=== PATIENT | female | born 1950 | race Caucasian/White ===

== ENCOUNTER → 2016-06-24 | Outpatient (CLI) | payer OTHER ==
[~2016-06-24] MED LIST: ALPR-411 PO; ASPCH81X PO; CALC-393 PO; CHOL1000 PO; CMD5 PO; CYAN10005 PO; DIAZ2TAB PO; ESCI1TAB9 PO; FERR1TAB13 PO; FLEC100T21 PO; GLIP1TAB91 PO; LXT PO; METO-217 PO; METO1TAB66 PO; PANT40TA PO; SENNTAB23 PO; WARF2.5T8 PO; ZCRT/40 PO
[2016-06-25 06:00] LABS: ESTIMATED AVERAGE GLUCOSE 126 mg/dl; HA1C FLAG Normal (Normal)
--- NOTE | 2016-06-30 09:04 | CODING QUERY MEDICAL NECESSITY ---
SUPPORTING DIAGNOSIS NEEDED Dr. Rizvi, A supporting diagnosis is required for the test/procedure performed on this patient in order for us to be reimbursed by the patient's insurance. Please provide a supporting diagnosis for the following test/procedure listed below next to the test name along with your signature. *If there is no additional diagnosis for this patient that would support the following test/procedure please document that below next to the test/procedure. Test(s)/Procedure(s) that require a supporting diagnosis: * GLYCATED HEMOGLOBIN DIAGNOSIS: DATE OF SERVICE: 06/24/16 Provider Signature: Date: Thank you Marko Brooks [facility] Information Management Once completed, please kindly fax back to [phone] For questions please call [phone]
== END | disposition home or self-care (01) ==
LOC: C.LAB1850 14:01
PROVIDERS: ATTEND Internal Medicine
DX: Z11.59 Encounter for screening for other viral diseases (principal); E78.5 Hyperlipidemia, unspecified; E11.9 Type 2 diabetes mellitus without complications

== ENCOUNTER → 2017-02-05 | Outpatient (CLI) | payer OTHER ==
[2017-02-05 12:08] LABS: BASO % 0.7 %; BASO ABS # 0.06 K/uL (0-0.2); COMPLETE YES; HEMATOCRIT 44.4 % (37-47); IG% 0.3 %; LYMPH % 20.8 %; LYMPH ABS # 1.87 K/uL (1.2-3.4); MEAN CELL VOLUME 94.7 fL (80-100); MEAN CORPUSCULAR HEMOGLOBIN 32.4 pg (25-34); MEAN CORPUSCULAR HGB CONC 34.2 g/dl (32-36); MEAN PLATELET VOLUME 13.2 fL (7.4-10.4); MONO % 12.3 %; NEUT % 63.9 %; PLATELET COUNT 220 K/uL (130-400); RED BLOOD COUNT 4.69 M/uL (4.2-5.4)
[2017-02-05 12:31] LABS: URINE APPEARANCE CLEAR (CLEAR); URINE BILIRUBIN NEG (NEG); URINE COLOR YELLOW; URINE EPITHELIAL CELL AUTO 20-30 /lpf (0-5); URINE NITRITE NEG (NEG); UROBILINOGEN NEG (NEG)
[2017-02-05 12:34] LABS: MANUAL MICROSCOPIC REQUIRED? NO; REVIEW REQ? NO
[2017-02-05 12:38] LABS: ALT/SGPT 24 U/L (12-78); AST/SGOT 15 U/L (15-37); BLOOD UREA NITROGEN 28 mg/dl (7-18); BUN/CREATININE RATIO 21.3 (10-20); CALCIUM 10.7 mg/dl (8.5-10.1); CARBON DIOXIDE 25 mmol/L (21-32); CHLORIDE 102 mmol/L (98-107); GLUCOSE 143 mg/dl (70-99); SODIUM 134 mmol/L (136-145)
[2017-02-05 12:41] LABS: ESTIMATED AVERAGE GLUCOSE 143 mg/dl; HA1C FLAG Normal (Normal)
[2017-02-05 12:49] LABS: CHOLESTEROL 205 mg/dl (0-200); HDL CHOLESTEROL 68 mg/dl; LDL CHOLESTEROL CALCULATED 106 mg/dl; TRIGLYCERIDES 156 mg/dl (0-150); VERY LOW DENSITY LIPOPROT CALC 31 mg/dl
[2017-02-05 13:19] LABS: RATIO 6.5 mcg/mg (0-30.0)
--- NOTE | 2017-02-17 11:49 | CODING QUERY MEDICAL NECESSITY ---
SUPPORTING DIAGNOSIS NEEDED Dr. Rizvi, A supporting diagnosis is required for the test/procedure performed on this patient in order for us to be reimbursed by the patient's insurance. Please provide a supporting diagnosis for the following test/procedure listed below next to the test name along with your signature. *If there is no additional diagnosis for this patient that would support the following test/procedure please document that below next to the test/procedure. Test(s)/Procedure(s) that require a supporting diagnosis: * [id number] GLYCATED HEMOGLOBIN DIAGNOSIS: DATE OF SERVICE: 02/05/17 Provider Signature: Date: Thank you Marko Brooks [facility] Information Management Once completed, please kindly fax back to [phone] For questions please call [phone]
== END | disposition home or self-care (01) ==
LOC: C.LAB1850 10:29
PROVIDERS: ATTEND Internal Medicine
DX: E78.5 Hyperlipidemia, unspecified (principal); E11.9 Type 2 diabetes mellitus without complications

== ENCOUNTER → 2017-05-26 | Outpatient (CLI) | payer OTHER ==
[~2017-05-26] MED LIST changes: +METO-452 PO; -METO1TAB66 PO
[2017-05-26 16:57] LABS: CALCIUM 10.2 mg/dl (8.5-10.1)
[2017-05-27 07:40] LABS: ESTIMATED AVERAGE GLUCOSE 123 mg/dl; HA1C FLAG Normal (Normal)
== END | disposition home or self-care (01) ==
LOC: C.LAB1850 14:12
PROVIDERS: ATTEND Internal Medicine
DX: E78.5 Hyperlipidemia, unspecified (principal); E83.52 Hypercalcemia

== ENCOUNTER → 2017-06-25 | Outpatient (CLI) | payer OTHER ==
--- NOTE | 2017-06-25 21:40 | DIAGNOSTIC IMAGING REPORT ---
NUCLEAR PARATHYROID SCAN CLINICAL HISTORY: Hypercalcemia. Hyperparathyroidism. COMPARISON STUDY: The thyroid scan dated 01/23/2014. TECHNIQUE: 21.2 mCi of technetium-99m Cardiolite was administered intravenously. Fifteen minute planar, 3-hour planar, and SPECT images of the neck and thorax were performed. FINDINGS: There is normal radiotracer accumulation seen throughout both thyroid lobes on the 15 minute images. There is expected salivary gland and cardiac activity. Delayed planar images show diffuse homogeneous washout of tracer from the thyroid gland. There are no abnormal foci of increased radiotracer uptake to suggest parathyroid adenoma. SPECT imaging shows no areas of suspicious focal uptake within the thyroid bed, lower neck, or superior mediastinum. IMPRESSION: There is no scintigraphic evidence of parathyroid adenoma and there has been no significant change from the 2014 examination. Electronically signed by: Jessee Mann M.D. 06/25/2017 9:38 PM Dictated Date/Time: 06/25/2017 9:33 PM
== END | disposition home or self-care (01) ==
LOC: C.NUCL 16:33
PROVIDERS: ATTEND Internal Medicine
DX: E78.5 Hyperlipidemia, unspecified (principal)

== ENCOUNTER → 2017-09-22 | Outpatient (CLI) | payer OTHER | END | disposition home or self-care (01) | LOC: C.PAPS 18:21 | PROVIDERS: ATTEND Obstetrics & Gynecology | DX: Z12.4 Encounter for screening for malignant neoplasm of cervix (principal) ==

== ENCOUNTER → 2018-01-18 | Outpatient (CLI) | payer OTHER ==
--- NOTE | 2018-01-18 15:00 | DIAGNOSTIC IMAGING REPORT ---
L HUMERUS MIN 2 VIEWS ROUTINE CLINICAL HISTORY: W19.XXXA [id number] Arm [id number] trauma. Pain. COMPARISON: None. DISCUSSION: The bones and joint spaces appear intact. There is no evidence of fracture, dislocation or bony disease. There is no evidence for soft tissue swelling. IMPRESSION: Negative study. The above report was generated using voice recognition software. It may contain grammatical, syntax or spelling errors. Electronically signed by: Cm Welch M.D. 01/18/2018 2:58 PM Dictated Date/Time: 01/18/2018 2:58 PM
== END | disposition home or self-care (01) ==
LOC: C.RAD1850 14:33
PROVIDERS: ATTEND Physician Assistant
DX: M79.603 Pain in arm, unspecified (principal); W19.XXXA Unspecified fall, initial encounter

== ENCOUNTER 2019-03-19 16:12 | Inpatient (IN) ==
--- NOTE | 2019-03-19 16:54 | XRay Report ---
XR chest 1V portable HISTORY: 68 years-old Female Dyspnea acute shortness of breath COMPARISON: Chest radiographs 09/11/2015 TECHNIQUE: Portable AP view of the chest FINDINGS: Cardiac silhouette is enlarged. Calcified plaque of the thoracic cortical arch. Pulmonary vascular co ngestion. Unchanged positioning of the left subclavian pacer. No pneumothorax. Suspected trace pleura l effusions are noted with mid and lower lung zone predominant mixed interstitial and alveolar opacit ies, left greater than right. Degenerative changes of the shoulders and spine. IMPRESSION: 1. Cardiomegaly with suggestion of mild pulmonary edema. 2. Asymmetric left greater than right basilar and left midlung opacities suggest asymmetric pulmonary edema versus pneumonitis. Correlate clinically. 3. Probable trace pleural effusions. The above report was generated using voice recognition software. It may contain grammatical, syntax o r spelling errors. Electronically signed by: Neil Waddell M.D. 03/19/2019 4:53 PM
[2019-03-19 16:55] LABS: Base Excess ABG -0.4 mEq/L (-9-1.8); HCO3 ABG 21 mmol/L (19-24); Oxygen Saturation ABG 92.4 % (90-95); PCO2 ABG 28 mmHg (35-46); PO2 ABG 60 mm/Hg (80-95)
[2019-03-19 17:00] LABS: Basophils # (auto) 0.04 K/uL (0-0.2); Basophils % (auto) 0.3 %; Eosinophils # (auto) 0.02 K/uL (0-0.5); Eosinophils % (auto) 0.1 %; Hematocrit (blood only) 44.2 % (37-47); Hemoglobin 14.8 g/dL (12.0-16.0); Immature Granulocytes # (auto) 0.07 K/uL (0.00-0.02); Immature Granulocytes % (auto) 0.5 %; Lymphocytes # (auto) 1.32 K/uL (1.2-3.4); Lymphocytes % (auto) 8.5 %; Mean Corpuscular Hemoglobin 31.9 pg (25-34); Mean Corpuscular Hgb Conc 33.5 g/dL (32-36); Mean Corpuscular Volume 95.3 fL (80-100); Mean Platelet Volume 12.5 fL (7.4-10.4); Monocytes # (auto) 1.39 K/uL (0.11-0.59); Monocytes % (auto) 8.9 %; Neutrophils # (auto) 12.71 K/uL (1.4-6.5); Neutrophils % (auto) 81.7 %; Nucleated RBC # (auto) 0.06 K/uL (0-0); Nucleated RBC % (auto) 0.4 %; Platelet Count 205 K/uL (130-400); RDW Coefficient of Variation 14.3 % (11.5-14.5); RDW Standard Deviation 49.2 fL (36.4-46.3); Red Blood Count 4.64 M/uL (4.2-5.4); White Blood Count 15.55 K/uL (4.8-10.8)
[2019-03-19 17:03] LABS: Allen Test Pos (Pos)
[2019-03-19] MEDS ORDERED: LEVOFLOXACIN/D5W 750 MG/150 ML BAG IV STA (17:17)
[2019-03-19 17:18] LABS: Prothrombin Time 48.4 Seconds (9.0-12.0)
[2019-03-19 17:19] LABS: Influenza A virus by PCR Neg for Influ A (Neg); Influenza B virus by PCR Neg for Influ B (Neg)
[2019-03-19 17:22] LABS: Alanine Aminotransferase 20 U/L (12-78); Albumin Level 3.4 gm/dl (3.4-5.0); Aspartate Aminotransferase 17 U/L (15-37); BUN Creatinine Ratio 15.3 (10-20); Blood Urea Nitrogen 27 mg/dl (7-18); Calcium 10.6 mg/dl (8.5-10.1); Carbon Dioxide 24 mmol/L (21-32); Chloride 103 mmol/L (98-107); Est GFR (African American) 34.1; Est GFR (Non-African American) 29.4; Glucose 216 mg/dl (70-99); Potassium 4.5 mmol/L (3.5-5.1); Sodium 137 mmol/L (136-145)
[2019-03-19 17:25] LABS: INR 5.3 (0.9-1.1); Partial Thromboplastin Time 55.5 Seconds (21.0-31.0)
[2019-03-19 17:27] LABS: Albumin Globulin Ratio 0.7 (0.9-2); Alkaline Phosphatase 102 U/L (45-117); Bilirubin,Total 0.9 mg/dl (0.2-1); Globulin 4.7 gm/dl (2.5-4.0); NT Pro B Type Natriuretic Pept 9374 pg/ml (0-900); Total Protein 8.1 gm/dl (6.4-8.2); Troponin I < 0.015 ng/ml (0-0.045)
[2019-03-19] MEDS ORDERED: PHYTONADIONE 2.5 MG in SODIUM CHLORIDE 0.9% 50 ML IV ONE (17:42)
--- NOTE | 2019-03-19 18:57 | Emergency Department Note ---
Entered by Carmencita Ontiveros acting as a scribe for History of Present Illness General Chief complaint: Shortness of Breath/Dyspnea Stated complaint: WEAKNESS Source: patient History of Present Illness Onset (ago): hour(s) (last night ) Location: chest Pain Consistency: + other (worsening ) Quality: + other (weakness; shortness of breath ) Associated symptoms: + cough (mucous and blood), + diaphoresis, + fever/chills and + other (negative congestion; negative leg swelling); no nausea/vomiting The patient is a 68 year old female with a PMHx of COPD, Afib, and Type 2 Diabetes who presents to the Emergency Room with complaints of worsening weakness and shortness of breath beginning last night. The patient states that she felt weak all day yesterday, but states that this became worse last night as she developed fever, chills, and shortness of breath. She states that she went to bed and woke up this morning covered in sweat. The patient reports that for the past two weeks she has been coughing up a small amount blood with mucous every time she coughs. She denies congestion, leg swelling, nausea, and vomiting. The patient states that she is on Warfarin. She reports a history of COPD and Afib, and states that she is not on oxygen regularly. Home Medications Home Medications Medication Instructions Recorded Confirmed Type escitalopram 10 mg tablet 10 mg PO QAM #90 tab 01/24/19 03/19/19 History ferrous sulfate 325 mg (65 mg 325 mg PO BIDM #180 tab 01/24/19 03/19/19 History iron) tablet flecainide 100 mg tablet 100 mg PO BID #180 tab 01/24/19 03/19/19 History glipizide ER 5 mg tablet, extended 5 mg PO QAM #90 tab 01/24/19 03/19/19 History release 24 hr pantoprazole 40 mg tablet,delayed 40 mg PO QAM #90 tab 01/24/19 03/19/19 History release simvastatin 40 mg tablet 40 mg PO HS #90 tab 01/24/19 03/19/19 History tiotropium bromide 2.5 2 puffs INHALATION QAM #3 gm 01/24/19 03/19/19 History mcg/actuation mist for inhalation tramadol 50 mg tablet 50 mg PO BID PRN #60 tab 01/24/19 03/19/19 History triamterene 37.5 1 tab PO Q OTHER DAY #45 tab 01/24/19 03/19/19 History mg-hydrochlorothiazide 25 mg tablet warfarin 5 mg tablet 5 mg PO HS #100 tab 01/24/19 03/19/19 History alprazolam 0.25 mg tablet 0.25 mg PO TID PRN #90 tab 02/14/19 03/19/19 Rx diazepam 2 mg tablet 2 mg PO HS PRN #30 tab 02/25/19 03/19/19 History ascorbic acid (vitamin C) [Vitamin 1 g PO BID 03/19/19 03/19/19 History C] aspirin 81 mg PO QAM 03/19/19 03/19/19 History calcium carbonate-vitamin D3 1 tab PO QAM 03/19/19 03/19/19 History [Calcium 500 With D] cyanocobalamin (vitamin B-12) 1,000 mcg PO MONTHLY 03/19/19 03/19/19 History [Vitamin B-12] Allergies Allergy/AdvReac Type Severity Reaction Status Date / Time ibuprofen Allergy Intermediate SHAKINESS Verified 03/19/19 17:44 iodine Allergy Intermediate RASH Verified 03/19/19 17:44 latex Allergy Unknown unknown Verified 03/19/19 17:44 metformin AdvReac Intermediate DIZZINESS Verified 03/19/19 17:44 amoxicillin AdvReac Unknown IRRITABILIT Verified 03/19/19 17:44 Y Past Med/Surg History Medical History Anemia (Acute) Atrial fibrillation (Acute) COPD (chronic obstructive pulmonary disease) (Acute) Coronary artery arteriosclerosis (Acute) Depression, controlled (Acute) Diabetes (Acute) Hypercholesterolemia (Acute) Hypertension (Acute) Pacemaker (Acute) Surgical History Gastric bypass status for obesity (Acute) Hx of tonsillectomy (Acute) S/P appy (Acute) Family History Other No pertinent family history in first degree relatives Social History Intel Analyst Required: No Beliefs That Will Affect Care: None Current Living Situation: Family Feels Safe at Home: Yes Smoking Status: Former smoker Hx Alcohol Use: Yes Alcohol type: wine Hx Substance Use: No Review of Systems See HPI for pertinent positives & negatives. and A total of 10 systems reviewed and were otherwise negative Physical Exam Vital Signs Vital Signs - 24 hr 03/19/19 16:17 03/19/19 16:20 03/19/19 16:58 Temperature 36.0 C L Temperature Source Oral Sepsis Recent Fever Within 48 Hours No Sepsis New/Unexplained Change in Mental Status No Sepsis Action Taken by Nursing No Action Required Pulse Rate 97 H 100 H 92 H Pulse Rate [Right Finger] Pulse Rate from SpO2 Sensor 97 H 92 H Pulse Rhythm [Right Finger] Respiratory Rate 16 28 H 19 Respiratory Depth Blood Pressure 123/70 123/70 117/77 Blood Pressure [Right Arm] Blood Pressure Mean 87 87 90 Blood Pressure Mean [Right Arm] Blood Pressure Position Sitting Blood Pressure Position [Right Arm] Pulse Oximetry 78 L 91 Oxygen Delivery Method Room Air Nasal Cannula Oxygen Flow Rate 4 03/19/19 16:59 03/19/19 17:00 03/19/19 17:01 Temperature 36.8 C Temperature Source Oral Sepsis Recent Fever Within 48 Hours Sepsis New/Unexplained Change in Mental Status Sepsis Action Taken by Nursing Pulse Rate 91 H Pulse Rate [Right Finger] 91 H Pulse Rate from SpO2 Sensor 92 H Pulse Rhythm [Right Finger] Respiratory Rate 20 19 Respiratory Depth Normal Blood Pressure Blood Pressure [Right Arm] 117/77 Blood Pressure Mean Blood Pressure Mean [Right Arm] 90 Blood Pressure Position Blood Pressure Position [Right Arm] Lying Pulse Oximetry 90 78 L Oxygen Delivery Method Nasal Cannula Oxygen Flow Rate 5 03/19/19 17:10 03/19/19 17:20 03/19/19 17:30 Temperature Temperature Source Sepsis Recent Fever Within 48 Hours Sepsis New/Unexplained Change in Mental Status Sepsis Action Taken by Nursing Pulse Rate 91 H 90 94 H Pulse Rate [Right Finger] Pulse Rate from SpO2 Sensor 89 91 H 94 H Pulse Rhythm [Right Finger] Respiratory Rate 18 20 16 Respiratory Depth Blood Pressure Blood Pressure [Right Arm] Blood Pressure Mean Blood Pressure Mean [Right Arm] Blood Pressure Position Blood Pressure Position [Right Arm] Pulse Oximetry 92 95 89 L Oxygen Delivery Method Oxygen Flow Rate 03/19/19 17:40 03/19/19 17:50 03/19/19 18:00 Temperature Temperature Source Sepsis Recent Fever Within 48 Hours Sepsis New/Unexplained Change in Mental Status Sepsis Action Taken by Nursing Pulse Rate 91 H 91 H 90 Pulse Rate [Right Finger] Pulse Rate from SpO2 Sensor 90 91 H 90 Pulse Rhythm [Right Finger] Respiratory Rate 19 22 16 Respiratory Depth Blood Pressure Blood Pressure [Right Arm] Blood Pressure Mean Blood Pressure Mean [Right Arm] Blood Pressure Position Blood Pressure Position [Right Arm] Pulse Oximetry 95 96 95 Oxygen Delivery Method Oxygen Flow Rate 03/19/19 18:07 03/19/19 18:10 03/19/19 18:11 Temperature Temperature Source Sepsis Recent Fever Within 48 Hours Sepsis New/Unexplained Change in Mental Status Sepsis Action Taken by Nursing Pulse Rate 92 H 91 H 91 H Pulse Rate [Right Finger] 91 H Pulse Rate from SpO2 Sensor 93 H 91 H 91 H Pulse Rhythm [Right Finger] Regular Respiratory Rate 22 11 L 18 Respiratory Depth Blood Pressure 106/69 119/79 Blood Pressure [Right Arm] 119/79 Blood Pressure Mean 81 92 Blood Pressure Mean [Right Arm] 92 Blood Pressure Position Blood Pressure Position [Right Arm] Pulse Oximetry 93 95 94 Oxygen Delivery Method Oxygen Flow Rate 03/19/19 18:15 03/19/19 18:20 03/19/19 18:30 Temperature Temperature Source Sepsis Recent Fever Within 48 Hours Sepsis New/Unexplained Change in Mental Status Sepsis Action Taken by Nursing Pulse Rate 91 H 88 91 H Pulse Rate [Right Finger] Pulse Rate from SpO2 Sensor 90 89 87 Pulse Rhythm [Right Finger] Respiratory Rate 17 18 17 Respiratory Depth Blood Pressure 114/73 Blood Pressure [Right Arm] Blood Pressure Mean 86 Blood Pressure Mean [Right Arm] Blood Pressure Position Blood Pressure Position [Right Arm] Pulse Oximetry 95 95 94 Oxygen Delivery Method Oxygen Flow Rate Constitutional: Vital signs reviewed. Eyes: Pupils are equal round reactive to light. Conjunctiva are noninjected. ENT: Pharynx is clear without erythema or exudate. Mucous membranes are moist. Neck supple without meningeal signs. Respiratory: Bibasilar crackles, greater on the right side. Otherwise the breath sounds are equal and clear. No wheezing. Cardiovascular: Regular rate and rhythm. No rubs or gallops. GI: Soft, nondistended and nontender. Bowel sounds are present. Musculoskeletal: No peripheral edema. No lower extremity tenderness. Integumentary: Cyanosis to the nail beds and lips. Neurological: The patient is awake and alert. No focal deficits. Psychiatric: Normal affect. Course 1619: Past medical records reviewed. The patient was evaluated in room B12B. A complete history and physical exam was performed. 1710: Upon reevaluation, the patient's pulse ox is anywhere between 89 and 93% on 4L with a poor waveform. 1722: Upon reevaluation, the patient's lungs are clear except for the bibasilar rales. No wheezing. The patient states that she feels better. The patient's pulse ox is 97% on 5L with a good waveform. Her cyanosis has improved. I discussed the chest x-ray with the patient and ordered Levaquin IV. We are waiting on her INR. 1743: [facility] recommends giving the patient 2.5 Vitamin K IV. 1745: I notified the patient about the treatment plan. She states that she is feeling better. 1752: I discussed the [facility] who [facility] the patient for further evaluation. Consultations Consultation #1: I [facility] the [facility] recommends giving the patient 2.5 Vitamin K IV. Time: 17:43 Consultation #2: I discussed the [facility] who [facility] the patient for further evaluation. Time: 17:52 Administered Medications Discontinued Medications Levofloxacin/Dextrose (Levaquin/D5w) 750 mg in 150 mls @ 100 mls/hr IV NOW STA Stop: 03/19/19 18:46 Last Infusion: 03/19/19 18:36 Dose: 100 mls/hr Documented by: [id number] Infusion: 03/19/19 18:07 Dose: 0 mls/hr Documented by: [id number] Admin: 03/19/19 17:22 Dose: 100 mls/hr Documented by: [id number] Phytonadione 2.5 mg/ Sodium (Chloride) 50.25 mls @ 100.5 mls/hr IV ONE ONE Stop: 03/19/19 18:11 Last Infusion: 03/19/19 18:35 Dose: 0 mls/hr Documented by: [id number] Admin: 03/19/19 18:07 Dose: 100.5 mls/hr Documented by: [id number] Medical Decision Making Differential Diagnosis Differential diagnoses include bronchitis, pneumonia, lung cancer, PE, COPD exacerbation, CHF, and others were considered. Medical Records Attestation: I reviewed the patient's medical records. I did perform a limited focused review of portions of the patient's old chart on the electronic medical record. The patient has had no recent pertinent visits to this hospital. Home Medications Current Medication List: was personally reviewed by me Laboratory Data Attestation: I reviewed the patient's lab results. Result diagrams: 03/19/19 16:40 03/19/19 16:40 Lab Results 03/19/19 03/19/19 03/19/19 Range/Units 16:35 16:40 16:40 WBC (4.8-10.8) K/uL RBC (4.2-5.4) M/uL Hgb (12.0-16.0) g/dL Hct (37-47) % MCV (80-100) fL MCH (25-34) pg MCHC (32-36) g/dL RDW Std Deviation (36.4-46.3) fL RDW Coeff of Severino (11.5-14.5) % Plt Count (130-400) K/uL MPV (7.4-10.4) fL Immature Gran % (Auto) % Neut % (Auto) % Lymph % (Auto) % [place] % (Auto) % Eos % (Auto) % Baso % (Auto) % Immature Gran # (Auto) (0.00-0.02) K/uL Neut # (Auto) (1.4-6.5) K/uL Lymph # (Auto) (1.2-3.4) K/uL [place] # (Auto) (0.11-0.59) K/uL Eos # (Auto) (0-0.5) K/uL Baso # (Auto) (0-0.2) K/uL Absolute Nucleated RBC (0-0) K/uL Nucleated RBC % (auto) % PT 48.4 H (9.0-12.0) Seconds INR 5.3 H (0.9-1.1) APTT 55.5 H* (21.0-31.0) Seconds PTT Ratio 2.0 ABG pH (7.35-7.45) ABG pCO2 (35-46) mmHg ABG pO2 (80-95) mm/Hg ABG HCO3 (19-24) mmol/L ABG O2 Saturation (90-95) % ABG Base Excess (-9-1.8) mEq/L Huy Test (Pos) Barometric Pressure mm/Hg Oxygen Given Sodium 137 (136-145) mmol/L Potassium 4.5 (3.5-5.1) mmol/L Chloride 103 (98-107) mmol/L Carbon Dioxide 24 (21-32) mmol/L Anion Gap 10.0 (3-11) BUN 27 H (7-18) mg/dl Creatinine 1.74 H (0.6-1.2) mg/dl Est Cr Clr Drug Dosing 36.0 ml/min Est GFR ( Amer) 34.1 Est GFR (Non-Af Amer) 29.4 BUN/Creatinine Ratio 15.3 (10-20) Glucose 216 H (70-99) mg/dl POC Lactic Acid Abdias (0.90-1.70) mmol/L Calcium 10.6 H (8.5-10.1) mg/dl Total Bilirubin 0.9 (0.2-1) mg/dl AST 17 (15-37) U/L ALT 20 (12-78) U/L Alkaline Phosphatase 102 (45-117) U/L Troponin I < 0.015 (0-0.045) ng/ml NT-Pro-B Natriuret Pep 9374 H (0-900) pg/ml Total Protein 8.1 (6.4-8.2) gm/dl Albumin 3.4 (3.4-5.0) gm/dl Globulin 4.7 H (2.5-4.0) gm/dl Albumin/Globulin Ratio 0.7 L (0.9-2) Influenza Type A (PCR) Neg for Influ A (Neg) Influenza Type B (PCR) Neg for Influ B (Neg) 03/19/19 03/19/19 03/19/19 Range/Units 16:40 16:40 16:45 WBC 15.55 H (4.8-10.8) K/uL RBC 4.64 (4.2-5.4) M/uL Hgb 14.8 (12.0-16.0) g/dL Hct 44.2 (37-47) % MCV 95.3 (80-100) fL MCH 31.9 (25-34) pg MCHC 33.5 (32-36) g/dL RDW Std Deviation 49.2 H (36.4-46.3) fL RDW Coeff of Severino 14.3 (11.5-14.5) % Plt Count 205 (130-400) K/uL MPV 12.5 H (7.4-10.4) fL Immature Gran % (Auto) 0.5 % Neut % (Auto) 81.7 % Lymph % (Auto) 8.5 % [place] % (Auto) 8.9 % Eos % (Auto) 0.1 % Baso % (Auto) 0.3 % Immature Gran # (Auto) 0.07 H (0.00-0.02) K/uL Neut # (Auto) 12.71 H (1.4-6.5) K/uL Lymph # (Auto) 1.32 (1.2-3.4) K/uL [place] # (Auto) 1.39 H (0.11-0.59) K/uL Eos # (Auto) 0.02 (0-0.5) K/uL Baso # (Auto) 0.04 (0-0.2) K/uL Absolute Nucleated RBC 0.06 H (0-0) K/uL Nucleated RBC % (auto) 0.4 % PT (9.0-12.0) Seconds INR (0.9-1.1) APTT (21.0-31.0) Seconds PTT Ratio ABG pH 7.50 H (7.35-7.45) ABG pCO2 28 L (35-46) mmHg ABG pO2 60 L (80-95) mm/Hg ABG HCO3 21 (19-24) mmol/L ABG O2 Saturation 92.4 (90-95) % ABG Base Excess -0.4 (-9-1.8) mEq/L Huy Test Pos (Pos) Barometric Pressure 731.7 mm/Hg Oxygen Given 5L O2 Sodium (136-145) mmol/L Potassium (3.5-5.1) mmol/L Chloride (98-107) mmol/L Carbon Dioxide (21-32) mmol/L Anion Gap (3-11) BUN (7-18) mg/dl Creatinine (0.6-1.2) mg/dl Est Cr Clr Drug Dosing ml/min Est GFR ( Amer) Est GFR (Non-Af Amer) BUN/Creatinine Ratio (10-20) Glucose (70-99) mg/dl POC Lactic Acid Abdias 6.31 H (0.90-1.70) mmol/L Calcium (8.5-10.1) mg/dl Total Bilirubin (0.2-1) mg/dl AST (15-37) U/L ALT (12-78) U/L Alkaline Phosphatase (45-117) U/L Troponin I (0-0.045) ng/ml NT-Pro-B Natriuret Pep (0-900) pg/ml Total Protein (6.4-8.2) gm/dl Albumin (3.4-5.0) gm/dl Globulin (2.5-4.0) gm/dl Albumin/Globulin Ratio (0.9-2) Influenza Type A (PCR) (Neg) Influenza Type B (PCR) (Neg) Imaging Data Radiologist's Impression: Radiology results as stated below per my review and the radiologist's interpretation: XR chest 1V portable HISTORY: 68 years-old Female Dyspnea acute shortness of breath COMPARISON: Chest radiographs 09/11/2015 TECHNIQUE: Portable AP view of the chest FINDINGS: Cardiac silhouette is enlarged. Calcified plaque of the thoracic cortical arch. Pulmonary vascular congestion. Unchanged positioning of the left subclavian pacer. No pneumothorax. Suspected trace pleural effusions are noted with mid and lower lung zone predominant mixed interstitial and alveolar opacities, left greater than right. Degenerative changes of the shoulders and spine. IMPRESSION: 1. Cardiomegaly with suggestion of mild pulmonary edema. 2. Asymmetric left greater than right basilar and left midlung opacities suggest asymmetric pulmonary edema versus pneumonitis. Correlate clinically. 3. Probable trace pleural effusions. The above report was generated using voice recognition software. It may contain grammatical, syntax or spelling errors. Electronically signed by: Neil Waddell M.D. 03/19/2019 4:53 PM ECG Data Attestation: I personally reviewed and interpreted this ECG as follows: Indication: SOB/dyspnea Rate (beats per minute): 99 Rhythm: normal sinus Findings: + other (motion artifact limiting interpretation); no PVC and no ST elevation Blood Pressure Blood Pressure Findings: Elevated blood pressure Blood Pressure Disposition: elevated BP felt to be situational MDM Narrative I did evaluate the patient as noted above. The patient is presenting with shortness of breath with hypoxemia and central/peripheral cyanosis. IV access was established. She was placed on supplemental oxygen with 5 L nasal cannula. The patient was placed on a continuous alarm security or surveillance monitor. I did order and personal ly review the patient's 12-lead EKG as described above. Her twelve-lead EKG showed what appeared to be sinus rhythm without any acute ischemic changes. I did order and personally reviewed the images of the patient's chest x-ray as described above. She has bibasilar infiltrates which are concerning for pneumonia. Blood cultures were obtained. I did treat the patient with Levaquin IV. I did order and review the patient's blood work as noted in the electronic medical record. Her white count is significantly elevated. Lactic acid is over 6. Renal function is elevated as well which is near her baseline. Her glucose is 216. ABG shows a respiratory alkalosis with hypoxemia. She is not anemic. INR is supratherapeutic. I did discuss the case with Dr. Shantell young who recommended IV vitamin K. I did treat the patient with vitamin K 2.5 mg IV. I did discuss the test results with the patient. Her cyanosis is improved and her O2 saturation is 97% on 5 L. I did discuss the case with the hospitalist and case finishing machine adjuster. Impression & Plan Hypoxemia, Bilateral pneumonia, Hemoptysis, Supratherapeutic INR, Acute hyperglycemia Critical Care Time Critical Care Time: Yes Total Critical Care Time: 40 I have personally spent approximately 40 minutes of critical care time in the direct management of this patient. This includes bedside care, interpretation of diagnostic studies, and testing, discussion with consultants, patient, and fa priscila members, and other required patient management activities. This 40 minutes is in excess of all separately billable procedures. Discharge Plan Visit Data Chief Complaint: Shortness of Breath/Dyspnea Stated Complaint: WEAKNESS ED Provider: Cezar Hunt Discharge Problem: Hypoxemia, Bilateral pneumonia, Hemoptysis, Supratherapeutic INR, Acute hyperglycemia Patient Disposition: Being Evaluated by Hospitalist Forms Stand Alone Forms: My [facility] Prescriptions Prescriptions: No Action alprazolam 0.25 mg tablet 0.25 mg PO TID PRN (Reason: anxiety) Qty: 90 RF: 0 escitalopram oxalate 10 mg tablet 10 mg PO QAM Qty: 90 RF: 0 glipizide 5 mg tablet extended release 24hr 5 mg PO QAM Qty: 90 RF: 0 pantoprazole 40 mg tablet,delayed release (DR/EC) 40 mg PO QAM Qty: 90 RF: 0 simvastatin 40 mg tablet 40 mg PO HS Qty: 90 RF: 0 tramadol 50 mg tablet 50 mg PO BID PRN (Reason: pain) Qty: 60 RF: 0 triamterene-hydrochlorothiazid 37.5-25 mg tablet 1 tab PO Q OTHER DAY Qty: 45 RF: 0 ferrous sulfate 325 mg (65 mg iron) tablet 325 mg PO BIDM Qty: 180 RF: 0 flecainide 100 mg tablet 100 mg PO BID Qty: 180 RF: 0 warfarin 5 mg tablet 5 mg PO HS Qty: 100 RF: 0 Spiriva Respimat 2.5 mcg/actuation mist 2 puffs inhalation QAM Qty: 3 RF: 0 diazepam 2 mg tablet 2 mg PO HS PRN (Reason: Anxiety) Qty: 30 RF: 0 aspirin 81 mg Tablet,Delayed Release (Dr/Ec) 81 mg PO QAM RF: 0 cyanocobalamin (vitamin B-12) [Vitamin B-12] 1,000 mcg Tablet 1,000 mcg PO MONTHLY RF: 0 ascorbic acid (vitamin C) [Vitamin C] 1,000 mg Tablet 1 g PO BID RF: 0 calcium carbonate-vitamin D3 [Calcium 500 With D] 500 mg(1,250mg) -400 unit Tablet 1 tab PO QAM RF: 0 Referrals Referrals: Alfredo Rizvi MD [Primary Care Provider] - Discharge Problem: Bilateral pneumonia Qualifiers: Pneumonia type: due to unspecified organism Lung location: lower lobe of lung Qualified Code(s): J18.1 - Lobar pneumonia, unspecified organism The scribe's documentation has been prepared under my direction and personally reviewed by me in its entirety. I confirm that the note above accurately reflects all work, treatment, procedures, and medical decision making performed by me.
--- NOTE | 2019-03-19 19:24 | History & Physical Report ---
Date of Service March 19, 2019 Assessment & Plan (1) Hypoxemia: Noted on arrival, improved s/p O2 and abx Related to PNA in the setting of COPD Levaquin started in the ED, will continue Nebs, mucomyst PNA noted on CXR Elevated WBC, afebrile Flu neg (2) ARF (acute renal failure): Baseline cr is 1.4, 1.7 on admission Likely related to dehydration and decreased PO intake Monitor with gentle IVF Holding glipizide (3) Supratherapeutic INR: ED spoke with Dr. Wayne recs for vit K Holding coumadin Serial INR Pt takes aspirin 81mg, states for prevention only--hold also to prevent bleeding (4) Type 2 diabetes mellitus: Home medication is glipizide, however pt with lightheadedness daily related to use Improved s/p decreased dose, but persists SSI PRN while admitted given this and elevated cr A1c pending Possibly Januvia would be a better choice for pt? (5) COPD (chronic obstructive pulmonary disease): No wheezing noted Will add nebs and mucomyst to prevent exacerbation Hold on steroids given no wheezing to avoid hyperglycemia Pt would likely benefit from PRN ventolin rx on d/c given no home rescue inhalers (6) Swelling of both lower extremities: QOD triamterine/HCTZ use Monitor with gentle IVF for renal status (7) Hyperlipidemia: continue home meds (8) HTN (hypertension): continue home meds (9) Depression: continue home meds (10) Afib: continue home meds, holding coumadin as above Pacer noted (11) DVT prophylaxis: SCDs Supratherapeutic INR History of Present Illness Primary Care Provider: Alfredo Rizvi MD 68 y/o F c/o SOB. Pt states she started having SOB about 2 weeks ago. She had a cough and eventually started bringing up sputum. Her SOB has been worsening and the last few days she has noticed blood in her sputum. She started to have some PORTER as well. Today and yesterday she was very weak. She has not been able to eat much. She states that today she tried to take a shower and could not stand long enough to complete this task. She sat on the side of the bath to rest and then could not get herself up due to being so weak. She gradually eased her way onto the floor due to weakness. Pt denies fever, chest pain, abd pain, n/v/c/d, LE pain or current swelling. Pt does get occasional LE swelling, but her PCP has put on her on QOD triamterine/HCTZ for this and it has been sufficient. Pt states she has had similar sx with PNA in the past x2, the last was about 5-6 yrs ago. Pt moved from that home and had been well since that time, so she thought maybe it was related to mold or some other issue with her home. Pt does not wear O2 at home. She does have COPD that she takes spiriva scheduled. She does not have PRN nebs/inhalers at home. She states that PCP has mentioned home O2 to her in the past, but she did not qualify for this. Pt received abx and O2 in the ED and states she does feel improved in terms of her breathing. She has not been OOB to test her weakness. Pt was reported at 78% on RA on arrival to the ED. Pt denies any bleeding. Pt states she gets lightheaded most days before lunch. She takes her glipizide as an AM med and has breakfast but about 3 hours later is lightheaded. PCP has decreased the dose and this has helped, but it still happens regularly. "I hate that medication. You can have it." This is the only DM medication she has ever used. Allergies Allergy/AdvReac Type Severity Reaction Status Date / Time ibuprofen Allergy Intermediate SHAKINESS Verified 03/19/19 17:44 iodine Allergy Intermediate RASH Verified 03/19/19 17:44 latex Allergy Unknown unknown Verified 03/19/19 17:44 metformin AdvReac Intermediate DIZZINESS Verified 03/19/19 17:44 amoxicillin AdvReac Unknown IRRITABILIT Verified 03/19/19 17:44 Y Home Medications Home Medications Medication Instructions Recorded Confirmed Type escitalopram 10 mg tablet 10 mg PO QAM #90 tab 01/24/19 03/19/19 History ferrous sulfate 325 mg (65 mg 325 mg PO BIDM #180 tab 01/24/19 03/19/19 History iron) tablet flecainide 100 mg tablet 100 mg PO BID #180 tab 01/24/19 03/19/19 History glipizide ER 5 mg tablet, extended 5 mg PO QAM #90 tab 01/24/19 03/19/19 History release 24 hr pantoprazole 40 mg tablet,delayed 40 mg PO QAM #90 tab 01/24/19 03/19/19 History release simvastatin 40 mg tablet 40 mg PO HS #90 tab 01/24/19 03/19/19 History tiotropium bromide 2.5 2 puffs INHALATION QAM #3 gm 01/24/19 03/19/19 History mcg/actuation mist for inhalation tramadol 50 mg tablet 50 mg PO BID PRN #60 tab 01/24/19 03/19/19 History triamterene 37.5 1 tab PO Q OTHER DAY #45 tab 01/24/19 03/19/19 History mg-hydrochlorothiazide 25 mg tablet warfarin 5 mg tablet 5 mg PO HS #100 tab 01/24/19 03/19/19 History alprazolam 0.25 mg tablet 0.25 mg PO TID PRN #90 tab 02/14/19 03/19/19 Rx diazepam 2 mg tablet 2 mg PO HS PRN #30 tab 02/25/19 03/19/19 History ascorbic acid (vitamin C) [Vitamin 1 g PO BID 03/19/19 03/19/19 History C] aspirin 81 mg PO QAM 03/19/19 03/19/19 History calcium carbonate-vitamin D3 1 tab PO QAM 03/19/19 03/19/19 History [Calcium 500 With D] cyanocobalamin (vitamin B-12) 1,000 mcg PO MONTHLY 03/19/19 03/19/19 History [Vitamin B-12] Past Med/Surg History Medical History Anemia (Acute) Atrial fibrillation (Acute) COPD (chronic obstructive pulmonary disease) (Acute) Coronary artery arteriosclerosis (Acute) Depression, controlled (Acute) Diabetes (Acute) Hypercholesterolemia (Acute) Hypertension (Acute) Pacemaker (Acute) Surgical History Gastric bypass status for obesity (Acute) Hx of tonsillectomy (Acute) S/P appy (Acute) Family History Mother Stroke Other Myocardial infarction No pertinent family history in first degree relatives Social History Preferred Language: Mauritian Communication Ability: Effective Criminology Professor Required: No Beliefs That Will Affect Care: None Current Living Situation: Alone Other Information That Helps Us Care for You: No Feels Safe at Home: Yes Safety Concerns: Feels Safe At This Time Smoking Status: Former smoker Hx Alcohol Use: Yes Alcohol type: wine Hx Substance Use: No Review of Systems Review of Systems: Pertinent positives and negatives reviewed in HPI--all others negative Physical Exam Constitutional: WD/WN, vitals as above Eyes: normal visual wright by confrontation and + anicteric sclerae Neck: normal visual inspection and trachea midline Respiratory: normal respiratory effort; no respiratory distress Auscultation: + diminished lung sounds and + crackles; no wheezes Cardiovascular: Rate/Rhythm: regular rate and regular rhythm Gastrointestinal (Abdomen): Inspection/Auscultation: abdomen not distended Percussion/Palpation: abdomen soft; abdomen nontender Musculoskeletal: Head/Neck/Chest: normocephalic and head atraumatic negative for edema, peripheral pulses intact Skin: no rashes, warm and dry Neurologic: awake; not confused Speech / Cognition: normal speech Psychiatric: A+Ox3, euthymic affect Results & Data Vital Signs (Past 12 Hours) Vital Signs Temp Pulse Pulse Resp BP BP Pulse Ox 03/19/19 19:00 91 H 22 99/79 L 94 03/19/19 18:30 91 H 17 94 03/19/19 18:20 88 18 95 03/19/19 18:15 91 H 17 114/73 95 03/19/19 18:11 91 H 91 H 18 119/79 119/79 94 03/19/19 18:10 91 H 11 L 95 03/19/19 18:07 92 H 22 106/69 93 03/19/19 18:00 90 16 95 03/19/19 17:50 91 H 22 96 03/19/19 17:40 91 H 19 95 03/19/19 17:30 94 H 16 89 L 03/19/19 17:20 90 20 95 03/19/19 17:10 91 H 18 92 03/19/19 17:01 36.8 C 03/19/19 17:00 91 H 19 78 L 03/19/19 16:59 91 H 20 117/77 90 03/19/19 16:58 92 H 19 117/77 91 03/19/19 16:20 36.0 C L 100 H 28 H 123/70 78 L 03/19/19 16:17 97 H 16 123/70 Diagnostic Findings CXR: L>R PNA Code Status & VTE Plan Code Status Full code VTE Prophylaxis Plan VTE Prophylaxis will be ordered: Yes PG Care Time/CCT Total # of Minutes Spent Total Time Spent with Patient: Total time spent is greater than 50% in coordination of care (as documented) at patient's floor/unit and/or counseling patient:
[2019-03-19] MEDS ORDERED: GLUCOSE 10 TABS/TUBE PO PRN (20:20)
[2019-03-19] MEDS ORDERED: ONDANSETRON INJ 2 MG/ML 2 ML VIAL IV PRN (20:20)
[2019-03-19] MEDS ORDERED: GLUCAGON FOR INJ 1 MG VIAL SQ PRN (20:20)
[2019-03-19] MEDS ORDERED: CARBOHYDRATES FOR HYPOGLYCEMIA PO PRN (20:20)
[2019-03-19] MEDS ORDERED: GLUCOSE 40% GEL 15 GM TUBE PO PRN (20:20)
[2019-03-19] MEDS ORDERED: DEXTROSE 50% 50 ML SYRINGE IV PRN (20:20)
[2019-03-19] MEDS ORDERED: TRAMADOL HCL 50 MG TABLET PO PRN (20:20)
[2019-03-19] MEDS: SODIUM CHLORIDE 0.9% 1000ML 1,000 ML IV SCH (21:05)
[2019-03-19] MEDS: ALBUT/IPRATROP 3MG/0.5MG NEB 3 ML VIAL NEB SCH (22:51)
[2019-03-19] MEDS: ASCORBIC ACID 500 MG TAB PO SCH (23:13)
[2019-03-19] MEDS: SIMVASTATIN 40 MG TAB PO SCH (23:13)
[2019-03-19] MEDS: FLECAINIDE ACETATE 100 MG TABLET PO SCH (23:14)
[2019-03-19] MEDS: INSULIN ASPART 100 UNITS/ML 3 ML PEN SC SCH (23:16)
[2019-03-20 01:20] LABS: Appearance Urine Turbid (Clear); Blood Urine Negative (Negative); Color Urine Dark Yellow; Epithelial Cell Urine Auto >30 /lpf (0-5); Glucose Urine UA Negative (Negative); Ketones Urine Trace (Negative); Leukocyte Esterase Urine 1+ (Negative); Nitrite Urine Positive (Negative); Protein Urine 1+ (Negative); Urobilinogen Urine Negative (Negative); WBC Urine Automated >30 /hpf (0-5)
[2019-03-20 01:40] LABS: Bilirubin Urine Negative (Negative); Ictotest Urine Negative (Negative)
[2019-03-20 01:43] LABS: RBC Urine Automated 0-4 /hpf (0-4)
[2019-03-20 01:44] LABS: Mucus Urine Present (None Prsent)
[2019-03-20 01:45] LABS: Bacteria Urine Automated 2+ (Negative)
[2019-03-20 01:46] LABS: Calcium Oxalate Crystals Urine Present (None Prsent)
[2019-03-20] MEDS: ALBUT/IPRATROP 3MG/0.5MG NEB 3 ML VIAL NEB SCH ×6 (03:02→22:49)
[2019-03-20 06:36] LABS: Basophils # (auto) 0.03 K/uL (0-0.2); Basophils % (auto) 0.2 %; Eosinophils # (auto) 0.03 K/uL (0-0.5); Eosinophils % (auto) 0.2 %; Hematocrit (blood only) 37.4 % (37-47); Hemoglobin 12.2 g/dL (12.0-16.0); Immature Granulocytes # (auto) 0.03 K/uL (0.00-0.02); Immature Granulocytes % (auto) 0.2 %; Lymphocytes # (auto) 2.16 K/uL (1.2-3.4); Lymphocytes % (auto) 16.2 %; Mean Corpuscular Hgb Conc 32.6 g/dL (32-36); Mean Corpuscular Volume 94.9 fL (80-100); Mean Platelet Volume 12.3 fL (7.4-10.4); Monocytes # (auto) 1.64 K/uL (0.11-0.59); Monocytes % (auto) 12.3 %; Neutrophils # (auto) 9.48 K/uL (1.4-6.5); Neutrophils % (auto) 70.9 %; Platelet Count 170 K/uL (130-400); RDW Coefficient of Variation 14.3 % (11.5-14.5); RDW Standard Deviation 49.6 fL (36.4-46.3); Red Blood Count 3.94 M/uL (4.2-5.4); White Blood Count 13.37 K/uL (4.8-10.8)
[2019-03-20 06:48] LABS: INR 1.5 (0.9-1.1); Prothrombin Time 14.8 Seconds (9.0-12.0)
[2019-03-20 07:15] LABS: BUN Creatinine Ratio 18.6 (10-20); Calcium 9.5 mg/dl (8.5-10.1); Creatinine Clr Calc Pharmacy 38.9 ml/min; Est GFR (Non-African American) 32.8; Potassium 3.6 mmol/L (3.5-5.1)
[2019-03-20] MEDS: ACETYLCYSTEINE 20% INHAL SOLN ***DISPENSED BY RESP. INH SCH ×2 (08:12→18:55)
[2019-03-20] MEDS: CALCIUM 600MG + VIT D 400 IU TAB PO SCH (08:43)
[2019-03-20] MEDS: ASCORBIC ACID 500 MG TAB PO SCH ×2 (08:43→20:17)
[2019-03-20] MEDS: FLECAINIDE ACETATE 100 MG TABLET PO SCH ×2 (08:43→20:17)
[2019-03-20] MEDS: ESCITALOPRAM OXALATE 10 MG TAB PO SCH (08:43)
[2019-03-20] MEDS: PANTOprazole 40 MG TAB PO SCH (08:43)
[2019-03-20] MEDS: FERROUS SULFATE 325 MG TAB PO SCH ×2 (08:44→17:04)
[2019-03-20] MEDS: INSULIN ASPART 100 UNITS/ML 3 ML PEN SC SCH ×4 (08:46→20:19)
[2019-03-20] MEDS: TIOTROPIUM BROMIDE 5 PUFF/90 MCG INH INH SCH (08:47)
[2019-03-20] MEDS ORDERED: ASPIRIN 81 MG ECTAB PO SCH (09:00)
[2019-03-20] MEDS: SODIUM CHLORIDE 0.9% 1000ML 1,000 ML IV SCH (17:04)
--- NOTE | 2019-03-20 19:16 | Hospitalist Progress Note ---
Date of Service March 20, 2019 Assessment & Plan (1) Hypoxemia: Pneumonia superimposed on COPDdoes seem to be stable, may be mildly improved symptomatically. -Community-acquired pneumoniacontinue current antibiotics and supportive care. Depending on her progress we may give consideration to switching away from Levaquin by tomorrow. (2) ARF (acute renal failure): Baseline cr is 1.4, is improving. Can hold IV fluids for now given that she is having better oral intake. (3) Supratherapeutic INR: Now slightly low after correction in the ER. Follow. Resume Coumadin. (4) Type 2 diabetes mellitus: Awaiting A1c, sugars overall reasonable right now. Continue current care. (5) COPD (chronic obstructive pulmonary disease): Fortunately in spite of pneumonia her lungs are quiet but not wheezing. Continue to hold off on steroids. (6) Swelling of both lower extremities: QOD triamterine/HCTZ use Monitor with gentle IVF for renal status (7) Hyperlipidemia: continue home meds (8) HTN (hypertension): continue home meds (9) Depression: continue home meds (10) Afib: continue home meds, resume coumadin as above (11) DVT prophylaxis: SCDs coumadin as above Subjective Still quite dyspneic on exertion, but is feeling better than before. Ongoing shortness of breath, not much sputum, biggest problem is dyspnea on exertion, she also notes that she does not sleep well, although that is chronic setting. She denies any martine symptoms with her bipolar right now. Review of Systems Review of Systems: All systems reviewed & are unremarkable except as noted in HPI & below Physical Exam Physical Exam: In general she is awake and alert pleasant no distress. HEENT normocephalic atraumatic mucous members are moist. Lungs are markedly diminished throughout, with scattered rales no wheezes no accessory muscle use no rhonchi good effort. Skin shows no rashes no pallor or icterus. Neuro shows no focal deficits. Results & Data Vital Signs (Past 12 Hours) Vital Signs Temp Pulse Pulse Resp BP Pulse Ox Pulse Ox 03/20/19 18:56 84 18 92 03/20/19 16:55 84 03/20/19 15:15 98.2 F 87 20 113/73 91 03/20/19 14:56 78 20 94 03/20/19 12:03 81 L 03/20/19 11:24 98.4 F 80 20 120/74 91 03/20/19 11:14 80 18 91 03/20/19 07:30 80 20 93 PG Care Time/CCT Total # of Minutes Spent Total Time Spent with Patient: Total time spent is greater than 50% in coordination of care (as documented) at patient's floor/unit and/or counseling patient:
[2019-03-20] MEDS: SIMVASTATIN 40 MG TAB PO SCH (20:17)
[2019-03-21] MEDS: ALBUT/IPRATROP 3MG/0.5MG NEB 3 ML VIAL NEB SCH (02:24)
[2019-03-21] MEDS: ALPRAZolam 0.25 MG TABLET PO PRN ×2 (03:39→23:50)
[2019-03-21 06:58] LABS: Estimated Average Glucose 140 mg/dl; Hemoglobin A1C 6.5 % (4.5-5.6)
[2019-03-21 07:12] LABS: INR 1.2 (0.9-1.1); Prothrombin Time 11.8 Seconds (9.0-12.0)
[2019-03-21] MEDS: ALBUT/IPRATROP 3MG/0.5MG NEB 3 ML VIAL NEB PRN ×2 (07:48→13:22)
[2019-03-21] MEDS: ACETYLCYSTEINE 20% INHAL SOLN ***DISPENSED BY RESP. INH SCH (07:48)
[2019-03-21] MEDS: FLECAINIDE ACETATE 100 MG TABLET PO SCH ×2 (08:50→20:15)
[2019-03-21] MEDS: TRIAMTERENE/HCTZ 37.5/25MG TAB PO SCH (08:51)
[2019-03-21] MEDS: ASCORBIC ACID 500 MG TAB PO SCH ×2 (08:51→20:16)
[2019-03-21] MEDS: FERROUS SULFATE 325 MG TAB PO SCH ×2 (08:51→17:19)
[2019-03-21] MEDS: ESCITALOPRAM OXALATE 10 MG TAB PO SCH (08:51)
[2019-03-21] MEDS: CALCIUM 600MG + VIT D 400 IU TAB PO SCH (08:51)
[2019-03-21] MEDS: PANTOprazole 40 MG TAB PO SCH (08:51)
[2019-03-21] MEDS: INSULIN ASPART 100 UNITS/ML 3 ML PEN SC SCH ×4 (08:52→22:24)
[2019-03-21] MEDS: TIOTROPIUM BROMIDE 5 PUFF/90 MCG INH INH SCH (08:55)
[2019-03-21 09:15] LABS: Basophils # (auto) 0.02 K/uL (0-0.2); Basophils % (auto) 0.2 %; Eosinophils # (auto) 0.07 K/uL (0-0.5); Eosinophils % (auto) 0.6 %; Hematocrit (blood only) 37.5 % (37-47); Hemoglobin 12.2 g/dL (12.0-16.0); Immature Granulocytes # (auto) 0.03 K/uL (0.00-0.02); Immature Granulocytes % (auto) 0.3 %; Lymphocytes % (auto) 13.9 %; Mean Corpuscular Hgb Conc 32.5 g/dL (32-36); Mean Corpuscular Volume 95.2 fL (80-100); Mean Platelet Volume 11.7 fL (7.4-10.4); Monocytes # (auto) 1.45 K/uL (0.11-0.59); Monocytes % (auto) 12.6 %; Neutrophils # (auto) 8.31 K/uL (1.4-6.5); Neutrophils % (auto) 72.4 %; Platelet Count 200 K/uL (130-400); RDW Coefficient of Variation 14.4 % (11.5-14.5); RDW Standard Deviation 49.1 fL (36.4-46.3); Red Blood Count 3.94 M/uL (4.2-5.4); White Blood Count 11.48 K/uL (4.8-10.8)
[2019-03-21 09:38] LABS: BUN Creatinine Ratio 15.1 (10-20); Calcium 10.1 mg/dl (8.5-10.1); Creatinine Clr Calc Pharmacy 44.2 ml/min; Est GFR (African American) 44.7; Est GFR (Non-African American) 38.6; Potassium 3.7 mmol/L (3.5-5.1)
[2019-03-21] MEDS ORDERED: cefTRIAXone SODIUM 1,000 MG in DEXTROSE 5% 50 ML IV SCH (09:45)
[2019-03-21] MEDS ORDERED: AZITHROMYCIN 250 MG TAB PO SCH (10:00)
[2019-03-21] MEDS: cefTRIAXone SODIUM 2,000 MG in DEXTROSE 5% 50 ML IV SCH (10:27)
[2019-03-21] MEDS ORDERED: LEVOFLOXACIN/D5W 750 MG/150 ML BAG IV SCH (16:00)
[2019-03-21] MEDS: WARFARIN SOD 5 MG TAB PO SCH (16:55)
--- NOTE | 2019-03-21 20:03 | Hospitalist Progress Note ---
Date of Service March 21, 2019 Assessment & Plan (1) Hypoxemia: Pneumonia superimposed on COPDshowing slow but now steady improvement. Continue antibiotics and supportive caresee below otherwise -Community-acquired pneumoniacontinue antibiotics and supportive care. Given that she is showing good improvement, Pseudomonas coverage does not appear necessary, and she does show risks for tendinopathy based on her BMI and aneurysm problems based on her hypertension and diabetes, we will switch her way from Levaquin to Zithromax and Rocephin.. (2) ARF (acute renal failure): Appears to show approximately baseline stage III CKD. Is showing slow improvement, doing well off of fluids. (3) Supratherapeutic INR: Now slightly low after correction in the ER. Follow. Resumed Coumadin. (4) Type 2 diabetes mellitus: Sugars continue to be reasonablecontinue current management and follow (5) COPD (chronic obstructive pulmonary disease): Fortunately in spite of pneumonia her lungs are quiet but not wheezing. Continue to hold off on steroids. See above otherwise (6) Swelling of both lower extremities: Seems to relate more to venous stasis than anything cardiac. (7) Hyperlipidemia: continue home meds (8) HTN (hypertension): continue home meds control reasonable given the circumstances (9) Depression: continue home meds (10) Afib: Resume Coumadin as above Rate controlled (11) DVT prophylaxis: SCDs coumadin as above Subjective Feeling a little bit better. Breathing a little bit easier. Still definitely dyspneic on exertion, still definitely coughing with reddish sputum, but feels like she is slowly showing improvement. No fevers chills or sweats. Up and out of bed today. Later called and updated her brother at her request, answered all questions to the best my ability. Review of Systems Review of Systems: All systems reviewed & are unremarkable except as noted in HPI & below Physical Exam Physical Exam: General she is awake and alert pleasant no distress. HEENT normocephalic atraumatic mucous membranes moist. Lungs show faint scattered rales probably slightly more clear than yesterday no rhonchi no wheezes good effort. Cardio is regular without rubs murmurs gallops. Extremities show no cyanosis or clubbing. Skin shows no rashes, no pallor, no icterus. Neuro shows no focal deficits. Results & Data Vital Signs (Past 12 Hours) Vital Signs Temp Pulse Pulse Resp BP BP Pulse Ox 03/21/19 19:33 98.1 F 79 20 109/67 91 03/21/19 17:48 92 H 03/21/19 15:55 97.9 F 92 H 18 114/70 90 03/21/19 13:22 94 H 22 91 03/21/19 11:00 98.4 F 85 20 110/86 92 03/21/19 08:55 94 H PG Care Time/CCT Total # of Minutes Spent Total Time Spent with Patient: Total time spent is greater than 50% in coordination of care (as documented) at patient's floor/unit and/or counseling patient:
[2019-03-21] MEDS: SIMVASTATIN 40 MG TAB PO SCH (20:15)
[2019-03-22 06:52] LABS: INR 1.1 (0.9-1.1); Prothrombin Time 11.5 Seconds (9.0-12.0)
[2019-03-22 07:22] LABS: BUN Creatinine Ratio 20.3 (10-20); Calcium 9.8 mg/dl (8.5-10.1); Creatinine Clr Calc Pharmacy 46.7 ml/min; Est GFR (Non-African American) 41.4; Potassium 3.8 mmol/L (3.5-5.1)
[2019-03-22] MEDS: PANTOprazole 40 MG TAB PO SCH (09:18)
[2019-03-22] MEDS: ESCITALOPRAM OXALATE 10 MG TAB PO SCH (09:18)
[2019-03-22] MEDS: FERROUS SULFATE 325 MG TAB PO SCH ×2 (09:19→16:25)
[2019-03-22] MEDS: FLECAINIDE ACETATE 100 MG TABLET PO SCH ×2 (09:19→20:53)
[2019-03-22] MEDS: CALCIUM 600MG + VIT D 400 IU TAB PO SCH (09:19)
[2019-03-22] MEDS: TIOTROPIUM BROMIDE 5 PUFF/90 MCG INH INH SCH (09:20)
[2019-03-22] MEDS: ASCORBIC ACID 500 MG TAB PO SCH ×2 (09:20→20:52)
[2019-03-22] MEDS: AZITHROMYCIN 250 MG TAB PO SCH (09:20)
[2019-03-22] MEDS: INSULIN ASPART 100 UNITS/ML 3 ML PEN SC SCH ×4 (09:21→21:50)
[2019-03-22] MEDS: cefTRIAXone SODIUM 2,000 MG in DEXTROSE 5% 50 ML IV SCH (09:26)
[2019-03-22] MEDS ORDERED: COLCHICINE 0.6 MG TAB PO ONE (12:30)
[2019-03-22] MEDS: ACETAMINOPHEN 325 MG TAB PO SCH ×2 (13:09→20:53)
[2019-03-22] MEDS: DICLOFENAC SOD 1% GEL 100 GM TUBE EXT SCH ×3 (13:10→20:52)
[2019-03-22] MEDS: WARFARIN SOD 5 MG TAB PO SCH (16:25)
--- NOTE | 2019-03-22 18:52 | Hospitalist Progress Note ---
Date of Service March 22, 2019 Assessment & Plan (1) Hypoxemia: Pneumonia superimposed on COPDshowing slow but now steady improvement. Continue antibiotics and supportive caresee below otherwise -Community-acquired pneumoniacontinue antibiotics and supportive care. Showing slow and steady improvement day today. As we are continuing to be able to wean oxygen and she is continuing to get around better, hopefully we can start to look towards getting her out of the hospital. I did discuss with her that there is high likelihood she will need home oxygen for short time., And as she gets closer to looking to be ready for discharge we will need to get that set up if she is able to be home. (See weakness below otherwise) -Continue Zithromax Rocephin (2) ARF (acute renal failure): Appears to show approximately baseline stage III CKD. Meds (3) Toe pain: Has a history of gout, does not appear very severe right now. Given that a dose of colchicine would be fairly low risk, I will give her 1.2 mg x 1, given that she is not exquisitely tender will utilize diclofenac gel to the joint, and given that she notes relief with that we will utilize Tylenol as needed. (4) Supratherapeutic INR: Now low after correction in the ER. Follow. Continue Coumadin. Continue to follow INR (5) Type 2 diabetes mellitus: Sugars overall adequate control, continue to titrate current management (6) COPD (chronic obstructive pulmonary disease): Fortunately in spite of pneumonia her lungs are quiet but not wheezing. Continue to hold off on steroids. See above otherwise (7) Swelling of both lower extremities: Appearing to be venous stasis (8) Hyperlipidemia: continue home meds (9) HTN (hypertension): continue home meds control reasonable given the circumstances (10) Depression: continue home meds (11) Afib: Titrating Coumadin as above Rate remains controlled (12) DVT prophylaxis: SCDs coumadin as above (13) Weakness: PT/OT eval and treat. (14) Discharge planning issues: Appears to be improving from pneumonia standpoint to where she is likely to be able to go out of the hospital in the next 1 to 2 days. Whether she goes home or rehab will depend on if she makes further progress with PT and OT at that time. I discussed this with her and she is willing to go to rehab if necessary. She also may need to go home with oxygen. Subjective Definitely notes she is feeling better now. Still coughing and somewhat short of breath, but far less dyspnea on exertion, and almost no dyspnea at rest. She does note that her right big toe is hurting in a way that is consistent with prior gout flareups. Review of Systems Review of Systems: All systems reviewed & are unremarkable except as noted in HPI & below Physical Exam Physical Exam: General she is awake and alert pleasant no distress. HEENT normal cephalic atraumatic mucous membranes moist. Cardio is regular no rubs murmurs gallops. Lungs are diminished throughout but no rales rhonchi or wheeze good effort. Extremities show right great toe to have a bit of dull erythema moderately tender to palpate although able to do range of motion without exqu isite tenderness. No crepitus. Results & Data Vital Signs (Past 12 Hours) Vital Signs Temp Pulse Pulse Resp BP BP Pulse Ox 03/22/19 15:45 97.5 F L 75 16 103/69 91 03/22/19 15:20 80 L 03/22/19 15:01 78 03/22/19 11:55 97.7 F 87 16 105/70 91 03/22/19 09:00 78 03/22/19 07:08 97.3 F L 63 18 119/74 95 PG Care Time/CCT Total # of Minutes Spent Total Time Spent with Patient: Total time spent is greater than 50% in coordination of care (as documented) at patient's floor/unit and/or counseling patient:
[2019-03-22] MEDS: ACETAMINOPHEN 325 MG TAB PO PRN (19:53)
[2019-03-22] MEDS: SIMVASTATIN 40 MG TAB PO SCH (20:52)
[2019-03-22] MEDS: ALPRAZolam 0.25 MG TABLET PO PRN (21:45)
[2019-03-23 07:24] LABS: Basophils # (auto) 0.03 K/uL (0-0.2); Basophils % (auto) 0.3 %; Eosinophils # (auto) 0.43 K/uL (0-0.5); Eosinophils % (auto) 4.8 %; Hematocrit (blood only) 38.8 % (37-47); Hemoglobin 12.3 g/dL (12.0-16.0); Immature Granulocytes # (auto) 0.02 K/uL (0.00-0.02); Immature Granulocytes % (auto) 0.2 %; Lymphocytes # (auto) 1.69 K/uL (1.2-3.4); Lymphocytes % (auto) 18.8 %; Mean Corpuscular Hemoglobin 30.6 pg (25-34); Mean Corpuscular Hgb Conc 31.7 g/dL (32-36); Mean Corpuscular Volume 96.5 fL (80-100); Mean Platelet Volume 11.7 fL (7.4-10.4); Monocytes # (auto) 1.02 K/uL (0.11-0.59); Monocytes % (auto) 11.3 %; Neutrophils % (auto) 64.6 %; Platelet Count 214 K/uL (130-400); RDW Coefficient of Variation 14.8 % (11.5-14.5); RDW Standard Deviation 51.1 fL (36.4-46.3); Red Blood Count 4.02 M/uL (4.2-5.4); White Blood Count 8.99 K/uL (4.8-10.8)
[2019-03-23 07:33] LABS: INR 1.3 (0.9-1.1); Prothrombin Time 13.2 Seconds (9.0-12.0)
[2019-03-23 08:02] LABS: BUN Creatinine Ratio 25.2 (10-20); Calcium 9.7 mg/dl (8.5-10.1); Est GFR (African American) 49.4; Est GFR (Non-African American) 42.6; Potassium 3.9 mmol/L (3.5-5.1)
[2019-03-23] MEDS: FLECAINIDE ACETATE 100 MG TABLET PO SCH ×2 (08:28→20:40)
[2019-03-23] MEDS: ESCITALOPRAM OXALATE 10 MG TAB PO SCH (08:29)
[2019-03-23] MEDS: PANTOprazole 40 MG TAB PO SCH (08:29)
[2019-03-23] MEDS: CALCIUM 600MG + VIT D 400 IU TAB PO SCH (08:29)
[2019-03-23] MEDS: AZITHROMYCIN 250 MG TAB PO SCH (08:29)
[2019-03-23] MEDS: ASCORBIC ACID 500 MG TAB PO SCH ×2 (08:29→20:41)
[2019-03-23] MEDS: TRIAMTERENE/HCTZ 37.5/25MG TAB PO SCH (08:29)
[2019-03-23] MEDS: FERROUS SULFATE 325 MG TAB PO SCH ×2 (08:29→18:16)
[2019-03-23] MEDS: TIOTROPIUM BROMIDE 5 PUFF/90 MCG INH INH SCH (08:30)
[2019-03-23] MEDS: ACETAMINOPHEN 325 MG TAB PO SCH ×3 (08:31→20:40)
[2019-03-23] MEDS: INSULIN ASPART 100 UNITS/ML 3 ML PEN SC SCH ×4 (08:34→20:55)
[2019-03-23] MEDS: DICLOFENAC SOD 1% GEL 100 GM TUBE EXT SCH ×5 (09:43→20:44)
[2019-03-23] MEDS: cefTRIAXone SODIUM 2,000 MG in DEXTROSE 5% 50 ML IV SCH (10:08)
[2019-03-23] MEDS: WARFARIN SOD 5 MG TAB PO SCH (15:32)
--- NOTE | 2019-03-23 16:11 | Hospitalist Progress Note ---
Date of Service March 23, 2019 Assessment & Plan (1) Hypoxemia: Pneumonia superimposed on COPDshowing slow but now steady improvement. Continue antibiotics and supportive caresee below otherwise -Community-acquired pneumoniacontinue antibiotics and supportive care. Showing slow and steady improvement day today. As we are continuing to be able to wean oxygen and she is continuing to get around better, hopefully we can start to look towards getting her out of the hospital. I did discuss with her that there is high likelihood she will need home oxygen for short time., And as she gets closer to looking to be ready for discharge we will need to get that set up if she is able to be home. (See weakness below otherwise) -Continue Zithromax Rocephin (2) ARF (acute renal failure): Appears to show approximately baseline stage III CKD. Meds (3) Toe pain: Has a history of gout, does not appear very severe right now. Given that a dose of colchicine would be fairly low risk, I will give her 1.2 mg x 1, given that she is not exquisitely tender will utilize diclofenac gel to the joint, and given that she notes relief with that we will utilize Tylenol as needed. (4) Supratherapeutic INR: Now low after correction in the ER. Follow. Continue Coumadin. Continue to follow INR (5) Type 2 diabetes mellitus: Sugars overall adequate control, continue to titrate current management (6) COPD (chronic obstructive pulmonary disease): Fortunately in spite of pneumonia her lungs are quiet but not wheezing. Continue to hold off on steroids. See above otherwise (7) Swelling of both lower extremities: Appearing to be venous stasis (8) Hyperlipidemia: continue home meds (9) HTN (hypertension): continue home meds control reasonable given the circumstances (10) Depression: continue home meds (11) Afib: Titrating Coumadin as above Rate remains controlled (12) DVT prophylaxis: SCDs coumadin as above (13) Weakness: PT/OT eval and treat. (14) Discharge planning issues: Appears to be improving from pneumonia standpoint to where she is likely to be able to go out of the hospital in the next 1 to 2 days. Whether she goes home or rehab will depend on if she makes further progress with PT and OT at that time. I discussed this with her and she is willing to go to rehab if necessary. She also may need to go home with oxygen. Subjective Patient seen and examined at the bedside. Slowly improving still coughing and somewhat short of breath, but far less dyspnea on exertion, and almost no dyspnea at rest. She does note that her right big toe is hurting in a way that is consistent with prior gout flareups. Patient denies fever chills, chest pain hemoptysis hematuria dysuria abdominal pain frequency urgency. Review of Systems Review of Systems: All systems reviewed & are unremarkable except as noted in HPI & below Physical Exam Constitutional: WD/WN, vitals as above well developed Eyes: PERRL, conjunctivae normal, anicteric sclerae ENMT: external ear and nose normal, oropharynx normal Neck: trachea midline, no thyromegaly Respiratory: Auscultation: + crackles and + wheezes Cardiovascular: RRR, no murmur, no edema Gastrointestinal (Abdomen): normal bowel sounds, soft, nontender, no hepatosplenomegaly Musculoskeletal: no cyanosis or clubbing, extremities motor strength 5/5 Skin: no rashes, warm and dry Neurologic: patellar DTR's 2+ bilat, sensation intact Psychiatric: A+Ox3, euthymic affect Lymphatic: no cervical or axillary lymphadenopathy Results & Data Vital Signs (Past 12 Hours) Vital Signs Temp Pulse Pulse Resp BP BP Pulse Ox 03/23/19 15:36 36.9 C 75 16 148/84 H 96 03/23/19 15:02 76 03/23/19 12:28 79 L 03/23/19 10:59 36.4 C L 95 H 16 110/74 95 03/23/19 07:57 68 18 117/75 97 03/23/19 07:40 36.5 C 68 03/23/19 07:00 90 PG Care Time/CCT Total # of Minutes Spent Total Time Spent with Patient: Total time spent is greater than 50% in coordination of care (as documented) at patient's floor/unit and/or counseling patient:
[2019-03-23] MEDS ORDERED: MICONAZOLE NITRATE POWDER 43 GM EXT PRN (19:51)
[2019-03-23] MEDS: SIMVASTATIN 40 MG TAB PO SCH (20:40)
[2019-03-24 06:52] LABS: INR 1.6 (0.9-1.1); Prothrombin Time 16.2 Seconds (9.0-12.0)
[2019-03-24] MEDS: ASCORBIC ACID 500 MG TAB PO SCH ×2 (08:49→20:42)
[2019-03-24] MEDS: FLECAINIDE ACETATE 100 MG TABLET PO SCH ×2 (08:49→20:41)
[2019-03-24] MEDS: DICLOFENAC SOD 1% GEL 100 GM TUBE EXT SCH ×4 (08:49→20:42)
[2019-03-24] MEDS: ACETAMINOPHEN 325 MG TAB PO SCH ×3 (08:49→20:41)
[2019-03-24] MEDS: TIOTROPIUM BROMIDE 5 PUFF/90 MCG INH INH SCH (08:50)
[2019-03-24] MEDS: FERROUS SULFATE 325 MG TAB PO SCH ×2 (08:51→17:19)
[2019-03-24] MEDS: CALCIUM 600MG + VIT D 400 IU TAB PO SCH (08:51)
[2019-03-24] MEDS: ESCITALOPRAM OXALATE 10 MG TAB PO SCH (08:51)
[2019-03-24] MEDS: AZITHROMYCIN 250 MG TAB PO SCH (08:51)
[2019-03-24] MEDS: PANTOprazole 40 MG TAB PO SCH (08:51)
[2019-03-24] MEDS: INSULIN ASPART 100 UNITS/ML 3 ML PEN SC SCH ×4 (08:52→20:37)
[2019-03-24 09:13] LABS: Basophils # (auto) 0.05 K/uL (0-0.2); Basophils % (auto) 0.6 %; Eosinophils # (auto) 0.39 K/uL (0-0.5); Eosinophils % (auto) 4.6 %; Hematocrit (blood only) 40.3 % (37-47); Hemoglobin 13.3 g/dL (12.0-16.0); Immature Granulocytes # (auto) 0.03 K/uL (0.00-0.02); Immature Granulocytes % (auto) 0.4 %; Lymphocytes # (auto) 1.61 K/uL (1.2-3.4); Lymphocytes % (auto) 18.9 %; Mean Corpuscular Hemoglobin 31.7 pg (25-34); Mean Corpuscular Volume 96.2 fL (80-100); Mean Platelet Volume 11.5 fL (7.4-10.4); Monocytes # (auto) 0.77 K/uL (0.11-0.59); Neutrophils # (auto) 5.67 K/uL (1.4-6.5); Neutrophils % (auto) 66.5 %; Platelet Count 276 K/uL (130-400); RDW Coefficient of Variation 14.7 % (11.5-14.5); RDW Standard Deviation 49.7 fL (36.4-46.3); Red Blood Count 4.19 M/uL (4.2-5.4); White Blood Count 8.52 K/uL (4.8-10.8)
[2019-03-24 09:33] LABS: BUN Creatinine Ratio 21.1 (10-20); Calcium 9.9 mg/dl (8.5-10.1); Creatinine Clr Calc Pharmacy 40.9 ml/min; Est GFR (African American) 40.4; Est GFR (Non-African American) 34.9; Potassium 3.8 mmol/L (3.5-5.1)
[2019-03-24 09:36] LABS: Albumin Globulin Ratio 0.8 (0.9-2); Bilirubin,Total 0.6 mg/dl (0.2-1); Globulin 3.9 gm/dl (2.5-4.0); Total Protein 6.9 gm/dl (6.4-8.2)
[2019-03-24] MEDS: cefTRIAXone SODIUM 2,000 MG in DEXTROSE 5% 50 ML IV SCH (10:02)
--- NOTE | 2019-03-24 13:20 | Hospitalist Progress Note ---
Date of Service March 24, 2019 Assessment & Plan (1) Hypoxemia: Pneumonia superimposed on COPDshowing slow but now steady improvement. Continue antibiotics and supportive caresee below otherwise. Community-acquired pneumoniacontinue antibiotics ceftriaxone and azithromycin and supportive care. Patient is still on 3 L of oxygen to keep oxygenation above 92%. Patient was not on oxygen prior to this admission. We will try to wean her off and before discharge to senior care facility patient needs to have 2 steps. (2) ARF (acute renal failure): Appears to show approximately baseline stage III CKD. Meds (3) Toe pain: Has a history of gout, does not appear very severe right now. Given that a dose of colchicine would be fairly low risk, I will give her 1.2 mg x 1, given that she is not exquisitely tender will utilize diclofenac gel to the joint, and given that she notes relief with that we will utilize Tylenol as needed. (4) Supratherapeutic INR: Now low after correction in the ER. Follow. Continue Coumadin. Continue to follow INR (5) Type 2 diabetes mellitus: Sugars overall adequate control, continue to titrate current management (6) COPD (chronic obstructive pulmonary disease): Fortunately in spite of pneumonia her lungs are quiet but not wheezing. Continue to hold off on steroids. See above otherwise (7) Swelling of both lower extremities: Appearing to be venous stasis (8) Hyperlipidemia: continue home meds (9) HTN (hypertension): continue home meds control reasonable given the circumstances (10) Depression: continue home meds (11) Afib: Titrating Coumadin as above Rate remains controlled (12) DVT prophylaxis: SCDs coumadin as above (13) Weakness: PT/OT eval and treat. (14) Discharge planning issues: Appears to be improving from pneumonia standpoint to where she is likely to be able to go out of the hospital in the next 1 to 2 days. Whether she goes home or rehab will depend on if she makes further progress with PT and OT at that time. I discussed this with her and she is willing to go to rehab if necessary. She also may need to go home with oxygen. Subjective Patient seen and examined at the bedside. Slowly improving still coughing and short of breath, but far less dyspnea on exertion, and almost no dyspnea at rest. She does note that her right big toe is hurting in a way that is consistent with prior gout flareups. Patient denies fever chills, chest pain hemoptysis hematuria dysuria abdominal pain frequency urgency. Review of Systems Review of Systems: All systems reviewed & are unremarkable except as noted in HPI & below Physical Exam Constitutional: WD/WN, vitals as above well developed Eyes: PERRL, conjunctivae normal, anicteric sclerae ENMT: external ear and nose normal, oropharynx normal Neck: trachea midline, no thyromegaly Respiratory: Auscultation: + crackles and + wheezes Cardiovascular: RRR, no murmur, no edema Gastrointestinal (Abdomen): normal bowel sounds, soft, nontender, no hepatosplenomegaly Musculoskeletal: no cyanosis or clubbing, extremities motor strength 5/5 Skin: no rashes, warm and dry Neurologic: patellar DTR's 2+ bilat, sensation intact Psychiatric: A+Ox3, euthymic affect Lymphatic: no cervical or axillary lymphadenopathy Results & Data Vital Signs (Past 12 Hours) Vital Signs Temp Pulse Pulse Resp BP BP Pulse Ox 03/24/19 11:00 71 18 100/68 93 03/24/19 07:16 72 03/24/19 07:00 36.6 C 53 L 20 119/66 96 03/24/19 04:48 36.6 C 59 L 20 104/58 L 92 PG Care Time/CCT Total # of Minutes Spent Total Time Spent with Patient: Total time spent is greater than 50% in coordination of care (as documented) at patient's floor/unit and/or counseling patient:
[2019-03-24] MEDS: WARFARIN SOD 5 MG TAB PO SCH (17:19)
[2019-03-24] MEDS: SIMVASTATIN 40 MG TAB PO SCH (20:42)
[2019-03-24] MEDS: MAGNESIUM HYDROXIDE SUSP 30 ML UDC PO PRN (21:46)
[2019-03-25 06:39] LABS: Basophils # (auto) 0.03 K/uL (0-0.2); Basophils % (auto) 0.4 %; Eosinophils # (auto) 0.29 K/uL (0-0.5); Eosinophils % (auto) 3.8 %; Hematocrit (blood only) 36.9 % (37-47); Hemoglobin 11.9 g/dL (12.0-16.0); Immature Granulocytes # (auto) 0.01 K/uL (0.00-0.02); Immature Granulocytes % (auto) 0.1 %; Lymphocytes # (auto) 1.71 K/uL (1.2-3.4); Lymphocytes % (auto) 22.2 %; Mean Corpuscular Hemoglobin 30.9 pg (25-34); Mean Corpuscular Hgb Conc 32.2 g/dL (32-36); Mean Corpuscular Volume 95.8 fL (80-100); Mean Platelet Volume 11.1 fL (7.4-10.4); Monocytes # (auto) 1.06 K/uL (0.11-0.59); Monocytes % (auto) 13.8 %; Neutrophils # (auto) 4.59 K/uL (1.4-6.5); Neutrophils % (auto) 59.7 %; Platelet Count 258 K/uL (130-400); RDW Coefficient of Variation 14.9 % (11.5-14.5); RDW Standard Deviation 50.9 fL (36.4-46.3); Red Blood Count 3.85 M/uL (4.2-5.4); White Blood Count 7.69 K/uL (4.8-10.8)
[2019-03-25 07:22] LABS: Albumin Level 2.7 gm/dl (3.4-5.0); BUN Creatinine Ratio 24.3 (10-20); Calcium 9.7 mg/dl (8.5-10.1); Creatinine Clr Calc Pharmacy 50.6 ml/min; Est GFR (African American) 52.3; Est GFR (Non-African American) 45.2; Potassium 3.8 mmol/L (3.5-5.1)
[2019-03-25 07:25] LABS: Albumin Globulin Ratio 0.8 (0.9-2); Bilirubin,Total 0.4 mg/dl (0.2-1); Globulin 3.3 gm/dl (2.5-4.0)
[2019-03-25] MEDS: INSULIN ASPART 100 UNITS/ML 3 ML PEN SC SCH ×4 (08:49→20:33)
[2019-03-25] MEDS: FERROUS SULFATE 325 MG TAB PO SCH ×2 (08:50→16:19)
[2019-03-25] MEDS: DOCUSATE SODIUM 100 MG CAP PO SCH (08:51)
[2019-03-25] MEDS: CALCIUM 600MG + VIT D 400 IU TAB PO SCH (08:51)
[2019-03-25] MEDS: PANTOprazole 40 MG TAB PO SCH (08:52)
[2019-03-25] MEDS: TRIAMTERENE/HCTZ 37.5/25MG TAB PO SCH (08:52)
[2019-03-25] MEDS: ESCITALOPRAM OXALATE 10 MG TAB PO SCH (08:52)
[2019-03-25] MEDS: FLECAINIDE ACETATE 100 MG TABLET PO SCH ×2 (08:54→20:40)
[2019-03-25] MEDS: AZITHROMYCIN 250 MG TAB PO SCH (08:55)
[2019-03-25] MEDS: ACETAMINOPHEN 325 MG TAB PO SCH ×3 (08:55→20:29)
[2019-03-25] MEDS: ASCORBIC ACID 500 MG TAB PO SCH ×2 (08:55→20:32)
[2019-03-25] MEDS: DICLOFENAC SOD 1% GEL 100 GM TUBE EXT SCH ×4 (08:56→20:31)
[2019-03-25] MEDS: cefTRIAXone SODIUM 2,000 MG in DEXTROSE 5% 50 ML IV SCH (10:27)
[2019-03-25] MEDS: TIOTROPIUM BROMIDE 5 PUFF/90 MCG INH INH SCH (10:27)
[2019-03-25] MEDS ORDERED: SODIUM CHLORIDE 0.65% NA SOLN 45 ML (OCEAN) ONE (13:57)
--- NOTE | 2019-03-25 14:29 | Hospitalist Progress Note ---
Date of Service March 25, 2019 Assessment & Plan (1) Hypoxemia: Pneumonia superimposed on COPDshowing slow but now steady improvement. Continue antibiotics and supportive caresee below otherwise. Community-acquired pneumoniacontinue antibiotics ceftriaxone and azithromycin and supportive care. Patient is still on 3 L of oxygen to keep oxygenation above 92%. Patient was not on oxygen prior to this admission. We will try to wean her off and before discharge to care home facility. (2) ARF (acute renal failure): Appears to show approximately baseline stage III CKD. Meds (3) Toe pain: Has a history of gout, does not appear very severe right now. Given that a dose of colchicine would be fairly low risk, I will give her 1.2 mg x 1, given that she is not exquisitely tender will utilize diclofenac gel to the joint, and given that she notes relief with that we will utilize Tylenol as needed. (4) Supratherapeutic INR: Now low after correction in the ER. Follow. Continue Coumadin. Continue to follow INR (5) Type 2 diabetes mellitus: Sugars overall adequate control, continue to titrate current management (6) COPD (chronic obstructive pulmonary disease): Fortunately in spite of pneumonia her lungs are quiet but not wheezing. Continue to hold off on steroids. See above otherwise (7) Swelling of both lower extremities: Appearing to be venous stasis (8) Hyperlipidemia: continue home meds (9) HTN (hypertension): continue home meds control reasonable given the circumstances (10) Depression: continue home meds (11) Afib: Titrating Coumadin as above Rate remains controlled (12) DVT prophylaxis: SCDs coumadin as above (13) Weakness: PT/OT eval and treat. (14) Discharge planning issues: Appears to be improving from pneumonia standpoint to where she is likely to be able to go out of the hospital in the next 1 to 2 days. Whether she goes home or rehab will depend on if she makes further progress with PT and OT at that time. I discussed this with her and she is willing to go to rehab if necessary. She also may need to go home with oxygen. Subjective Patient seen and examined at the bedside. Slowly improving .Continue to have crackles in the left lower lobe. She does note that her right big toe is hurting in a way that is consistent with prior gout flareups. Patient denies fever chills, chest pain hemoptysis hematuria dysuria abdominal pain frequency urgency. Review of Systems Review of Systems: All systems reviewed & are unremarkable except as noted in HPI & below Physical Exam Constitutional: WD/WN, vitals as above well developed Eyes: PERRL, conjunctivae normal, anicteric sclerae ENMT: external ear and nose normal, oropharynx normal Neck: trachea midline, no thyromegaly Respiratory: Auscultation: + crackles and + wheezes Cardiovascular: RRR, no murmur, no edema Gastrointestinal (Abdomen): normal bowel sounds, soft, nontender, no hepatosplenomegaly Musculoskeletal: no cyanosis or clubbing, extremities motor strength 5/5 Skin: no rashes, warm and dry Neurologic: patellar DTR's 2+ bilat, sensation intact Psychiatric: A+Ox3, euthymic affect Lymphatic: no cervical or axillary lymphadenopathy Results & Data Vital Signs (Past 12 Hours) Vital Signs Temp Pulse Resp BP BP Pulse Ox 03/25/19 11:18 36.5 C 66 18 113/68 94 03/25/19 07:33 36.4 C L 72 20 134/81 93 03/25/19 04:23 67 03/25/19 03:06 36.6 C 49 L 20 116/58 L 93 PG Care Time/CCT Total # of Minutes Spent Total Time Spent with Patient: Total time spent is greater than 50% in coordination of care (as documented) at patient's floor/unit and/or counseling patient:
[2019-03-25] MEDS: WARFARIN SOD 5 MG TAB PO SCH (16:18)
[2019-03-25] MEDS: SIMVASTATIN 40 MG TAB PO SCH (20:31)
[2019-03-25] MEDS: MAGNESIUM HYDROXIDE SUSP 30 ML UDC PO PRN (20:37)
[2019-03-25] MEDS: ALPRAZolam 0.25 MG TABLET PO PRN (20:37)
[2019-03-26 07:57] LABS: Basophils # (auto) 0.03 K/uL (0-0.2); Basophils % (auto) 0.4 %; Eosinophils # (auto) 0.18 K/uL (0-0.5); Eosinophils % (auto) 2.4 %; Hematocrit (blood only) 40.9 % (37-47); Hemoglobin 12.9 g/dL (12.0-16.0); Immature Granulocytes # (auto) 0.02 K/uL (0.00-0.02); Immature Granulocytes % (auto) 0.3 %; Lymphocytes # (auto) 1.27 K/uL (1.2-3.4); Lymphocytes % (auto) 17.1 %; Mean Corpuscular Hemoglobin 30.6 pg (25-34); Mean Corpuscular Hgb Conc 31.5 g/dL (32-36); Mean Corpuscular Volume 97.1 fL (80-100); Mean Platelet Volume 10.9 fL (7.4-10.4); Monocytes % (auto) 13.5 %; Neutrophils # (auto) 4.91 K/uL (1.4-6.5); Neutrophils % (auto) 66.3 %; Platelet Count 280 K/uL (130-400); RDW Coefficient of Variation 15.1 % (11.5-14.5); RDW Standard Deviation 52.4 fL (36.4-46.3); Red Blood Count 4.21 M/uL (4.2-5.4); White Blood Count 7.41 K/uL (4.8-10.8)
[2019-03-26] MEDS: FLECAINIDE ACETATE 100 MG TABLET PO SCH ×2 (08:23→20:42)
[2019-03-26] MEDS: TIOTROPIUM BROMIDE 5 PUFF/90 MCG INH INH SCH (08:23)
[2019-03-26] MEDS: FERROUS SULFATE 325 MG TAB PO SCH ×2 (08:24→17:18)
[2019-03-26] MEDS: ESCITALOPRAM OXALATE 10 MG TAB PO SCH (08:24)
[2019-03-26] MEDS: CALCIUM 600MG + VIT D 400 IU TAB PO SCH (08:24)
[2019-03-26] MEDS: PANTOprazole 40 MG TAB PO SCH (08:24)
[2019-03-26] MEDS: AZITHROMYCIN 250 MG TAB PO SCH (08:24)
[2019-03-26] MEDS: ASCORBIC ACID 500 MG TAB PO SCH ×2 (08:24→20:42)
[2019-03-26] MEDS: DICLOFENAC SOD 1% GEL 100 GM TUBE EXT SCH ×4 (08:24→20:44)
[2019-03-26] MEDS: ACETAMINOPHEN 325 MG TAB PO SCH ×3 (08:25→20:43)
[2019-03-26] MEDS: DOCUSATE SODIUM 100 MG CAP PO SCH (08:28)
[2019-03-26] MEDS: INSULIN ASPART 100 UNITS/ML 3 ML PEN SC SCH ×4 (08:28→20:42)
[2019-03-26 08:37] LABS: Albumin Level 2.9 gm/dl (3.4-5.0); BUN Creatinine Ratio 22.6 (10-20); Calcium 10.2 mg/dl (8.5-10.1); Creatinine Clr Calc Pharmacy 55.3 ml/min; Est GFR (African American) 58.7; Est GFR (Non-African American) 50.6; Potassium 4.4 mmol/L (3.5-5.1)
[2019-03-26 08:38] LABS: Albumin Level 2.9 gm/dl (3.4-5.0); Calcium 10.1 mg/dl (8.5-10.1); Creatinine Clr Calc Pharmacy 55.8 ml/min; Est GFR (African American) 59.3; Est GFR (Non-African American) 51.2; Potassium 4.5 mmol/L (3.5-5.1)
[2019-03-26 08:52] LABS: Albumin Globulin Ratio 0.8 (0.9-2); Bilirubin,Total 0.3 mg/dl (0.2-1); Globulin 3.5 gm/dl (2.5-4.0); Total Protein 6.4 gm/dl (6.4-8.2)
[2019-03-26 08:53] LABS: Albumin Globulin Ratio 0.8 (0.9-2); Bilirubin,Total 0.3 mg/dl (0.2-1); Globulin 3.4 gm/dl (2.5-4.0); Total Protein 6.3 gm/dl (6.4-8.2)
--- NOTE | 2019-03-26 10:12 | Hospitalist Progress Note ---
Date of Service March 26, 2019 Assessment & Plan (1) Hypoxemia: Pneumonia superimposed on COPDshowing slow but now steady improvement. Continue antibiotics and supportive caresee below otherwise. Community-acquired pneumoniacontinue antibiotics ceftriaxone and azithromycin and supportive care. Requires now 2 L of oxygen to keep oxygenation above 92%. Patient was not on oxygen prior to this admission. We will try to wean her off and before discharge to [facility] facility. (2) ARF (acute renal failure): Appears to show approximately baseline stage III CKD. Meds (3) Toe pain: Has a history of gout, does not appear very severe right now. Given that a dose of colchicine would be fairly low risk, I will give her 1.2 mg x 1, given that she is not exquisitely tender will utilize diclofenac gel to the joint, and given that she notes relief with that we will utilize Tylenol as needed. (4) Supratherapeutic INR: Now is 1.6. INR pending. Patient is now on 5 mg of Coumadin daily. If INR below 2 gave now dose of 2.5 tonight. Follow INR daily until therapeutic. (5) Type 2 diabetes mellitus: Sugars overall adequate control, continue to titrate current management (6) COPD (chronic obstructive pulmonary disease): Fortunately in spite of pneumonia her lungs are quiet but not wheezing. Continue to hold off on steroids. See above otherwise (7) Swelling of both lower extremities: Appearing to be venous stasis, but also could be related to CHF since patient has elevated BNP of 1943. Strict in and out Daily weight Restrict fluids p.o. to 1200 mils TTE E pending for evaluation of congestive heart failure. Patient appears to be mildly volume overload. EKG significant for nonspecific ST changes in V3 V4 V5 and V6. There are also nonspecific T wave abnormalities and QT interval is shortened. Started furosemide 20 mg IV twice daily. (8) Hyperlipidemia: Continue simvastatin 40 mg p.o. nightly (9) HTN (hypertension): Continue aspirin 81 mg p.o. daily, like I need 100 mg p.o. twice daily, triamterene hydrochlorothiazide 25 mg daily discontinued since patient is on Lasix now. (10) Depression: Continue escitalopram 10 mg p.o. every morning, and diazepam 2 mg tablet p.o. nightly as needed (11) Afib: Titrating Coumadin as above Rate remains controlled (12) DVT prophylaxis: SCDs coumadin as above (13) Weakness: PT/OT eval and treat. (14) Discharge planning issues: Appears to be improving from pneumonia standpoint to where she is likely to be able to go out of the hospital in the next 1 to 2 days. Whether she goes home or rehab will depend on if she makes further progress with PT and OT at that time. I discussed this with her and she is willing to go to rehab if necessary. She also may need to go home with oxygen. Subjective Patient seen and examined at the bedside. Slowly improving .Continue to have crackles in the left lower lobe. She does note that her right big toe is hurting in a way that is consistent with prior gout flareups. Patient denies fever chills, chest pain hemoptysis hematuria dysuria abdominal pain frequency urgency. Review of Systems Review of Systems: All systems reviewed & are unremarkable except as noted in HPI & below Physical Exam Constitutional: WD/WN, vitals as above well developed Eyes: PERRL, conjunctivae normal, anicteric sclerae ENMT: external ear and nose normal, oropharynx normal Neck: trachea midline, no thyromegaly Respiratory: Auscultation: + crackles and + wheezes Cardiovascular: RRR, no murmur, no edema Gastrointestinal (Abdomen): normal bowel sounds, soft, nontender, no hepatosplenomegaly Musculoskeletal: no cyanosis or clubbing, extremities motor strength 5/5 Skin: no rashes, warm and dry Neurologic: patellar DTR's 2+ bilat, sensation intact Psychiatric: A+Ox3, euthymic affect Lymphatic: no cervical or axillary lymphadenopathy Results & Data Vital Signs (Past 12 Hours) Vital Signs Temp Pulse Pulse Resp BP BP Pulse Ox 03/26/19 07:27 36.7 C 79 18 132/75 97 03/26/19 07:00 88 03/26/19 03:55 36.6 C 72 18 123/66 97 03/26/19 00:00 67 03/25/19 23:47 36.9 C 66 20 115/75 100 PG Care Time/CCT Total # of Minutes Spent Total Time Spent with Patient: Total time spent is greater than 50% in coordination of care (as documented) at patient's floor/unit and/or counseling patient:
--- NOTE | 2019-03-26 10:18 | XRay Report ---
XR chest 1V portable CLINICAL HISTORY: possible pulmonary edema, pneumonia COMPARISON STUDY: 03/19/2019 FINDINGS: Myocardial megaly. Findings of component of mild congestive heart failure. Minimal superimp osed infiltrate left base. IMPRESSION: 1. Mild congestive failure. 2. Mild superimposed infiltrate left base. The above report was generated using voice recognition software. It may contain grammatical, syntax or spelling errors. Electronically signed by: Cm Wlech M.D. 03/26/2019 10:17 AM
[2019-03-26] MEDS: cefTRIAXone SODIUM 2,000 MG in DEXTROSE 5% 50 ML IV SCH (10:27)
[2019-03-26] MEDS ORDERED: MICONAZOLE NITRATE POWDER 43 GM EXT PRN (14:56)
[2019-03-26] MEDS: FUROSEMIDE 20 MG in SYRINGE 0 ML IV SCH (17:18)
[2019-03-26] MEDS: WARFARIN SOD 5 MG TAB PO SCH (17:19)
[2019-03-26 18:27] LABS: INR 2.5 (0.9-1.1)
[2019-03-26] MEDS: SIMVASTATIN 40 MG TAB PO SCH (20:44)
[2019-03-26] MEDS: ALPRAZolam 0.25 MG TABLET PO PRN (20:49)
[2019-03-27 06:48] LABS: Basophils # (auto) 0.03 K/uL (0-0.2); Basophils % (auto) 0.4 %; Eosinophils # (auto) 0.22 K/uL (0-0.5); Eosinophils % (auto) 2.7 %; Hematocrit (blood only) 38.5 % (37-47); Hemoglobin 12.5 g/dL (12.0-16.0); Immature Granulocytes # (auto) 0.03 K/uL (0.00-0.02); Immature Granulocytes % (auto) 0.4 %; Lymphocytes # (auto) 1.54 K/uL (1.2-3.4); Mean Corpuscular Hemoglobin 31.2 pg (25-34); Mean Corpuscular Hgb Conc 32.5 g/dL (32-36); Mean Platelet Volume 10.7 fL (7.4-10.4); Monocytes # (auto) 0.96 K/uL (0.11-0.59); Monocytes % (auto) 11.8 %; Neutrophils # (auto) 5.33 K/uL (1.4-6.5); Neutrophils % (auto) 65.7 %; Platelet Count 289 K/uL (130-400); RDW Coefficient of Variation 14.9 % (11.5-14.5); RDW Standard Deviation 51.3 fL (36.4-46.3); Red Blood Count 4.01 M/uL (4.2-5.4); White Blood Count 8.11 K/uL (4.8-10.8)
[2019-03-27 06:57] LABS: INR 2.7 (0.9-1.1); Prothrombin Time 25.7 Seconds (9.0-12.0)
[2019-03-27 07:30] LABS: Albumin Level 2.9 gm/dl (3.4-5.0); BUN Creatinine Ratio 22.3 (10-20); Calcium 9.8 mg/dl (8.5-10.1); Creatinine Clr Calc Pharmacy 48.5 ml/min; Est GFR (African American) 49.9; Potassium 3.9 mmol/L (3.5-5.1)
[2019-03-27 07:35] LABS: Albumin Globulin Ratio 0.8 (0.9-2); Bilirubin,Total 0.3 mg/dl (0.2-1); Globulin 3.6 gm/dl (2.5-4.0); Total Protein 6.5 gm/dl (6.4-8.2)
[2019-03-27] MEDS: CALCIUM 600MG + VIT D 400 IU TAB PO SCH (07:57)
[2019-03-27] MEDS: ESCITALOPRAM OXALATE 10 MG TAB PO SCH (07:58)
[2019-03-27] MEDS: PANTOprazole 40 MG TAB PO SCH (07:58)
[2019-03-27] MEDS: FLECAINIDE ACETATE 100 MG TABLET PO SCH ×2 (07:58→20:50)
[2019-03-27] MEDS: AZITHROMYCIN 250 MG TAB PO SCH (07:58)
[2019-03-27] MEDS: ASCORBIC ACID 500 MG TAB PO SCH ×2 (07:59→20:50)
[2019-03-27] MEDS: FERROUS SULFATE 325 MG TAB PO SCH ×2 (07:59→17:28)
[2019-03-27] MEDS: TIOTROPIUM BROMIDE 5 PUFF/90 MCG INH INH SCH (08:00)
[2019-03-27] MEDS: FUROSEMIDE 20 MG in SYRINGE 0 ML IV SCH (08:01)
[2019-03-27] MEDS: ACETAMINOPHEN 325 MG TAB PO SCH ×3 (08:01→20:50)
[2019-03-27] MEDS: DOCUSATE SODIUM 100 MG CAP PO SCH (08:10)
[2019-03-27] MEDS: INSULIN ASPART 100 UNITS/ML 3 ML PEN SC SCH ×4 (08:56→21:08)
[2019-03-27] MEDS: DICLOFENAC SOD 1% GEL 100 GM TUBE EXT SCH ×4 (08:56→20:51)
[2019-03-27] MEDS: cefTRIAXone SODIUM 2,000 MG in DEXTROSE 5% 50 ML IV SCH (10:20)
--- NOTE | 2019-03-27 16:27 | Hospitalist Progress Note ---
Date of Service March 27, 2019 Assessment & Plan (1) Hypoxemia: Pneumonia superimposed on COPDshowing slow but now steady improvement. Continue antibiotics and supportive caresee below otherwise. Community-acquired pneumoniacontinue antibiotics ceftriaxone and azithromycin and supportive care. Requires now 2 L of oxygen to keep oxygenation above 92%. Patient was not on oxygen prior to this admission. We will try to wean her off and before discharge to longterm facility. (2) ARF (acute renal failure): Appears to show approximately baseline stage III CKD. Avoid nephrotoxic agents including pantoprazole and Lasix. Stop both (3) Toe pain: Has a history of gout, flareup improved. To stop colchicine now since patient is doing better. (4) Supratherapeutic INR: INR 2.7. Patient is therapeutic now. Continue 5 mg of Coumadin daily. Continue monitoring INR. (5) Type 2 diabetes mellitus: Sugars overall adequate control, continue to titrate current management (6) COPD (chronic obstructive pulmonary disease): Fortunately in spite of pneumonia her lungs are quiet but not wheezing. Continue to hold off on steroids. See above otherwise (7) Swelling of both lower extremities: BNP improved to 1400 from 1943. Patient has component of congestive heart failure. She improved with furosemide 20 mg twice daily. TTE findings: Left ventricular systolic function is normal. No regional wall motion abnormality noted. There is mild concentric left ventricular hypertrophy. Ejection fraction 55 to 60%. There is mild tricuspid regurgitation. Strict in and out Daily weight Restrict fluids p.o. to 1200 mils. EKG significant for nonspecific ST changes in V3 V4 V5 and V6. There are also nonspecific T wave abnormalities and QT interval is shortened. Started furosemide 20 mg IV twice daily. (8) Hyperlipidemia: Continue simvastatin 40 mg p.o. nightly (9) HTN (hypertension): Continue aspirin 81 mg p.o. daily, like I need 100 mg p.o. twice daily, triamterene hydrochlorothiazide 25 mg daily discontinued since patient is on Lasix now. (10) Depression: Continue escitalopram 10 mg p.o. every morning, and diazepam 2 mg tablet p.o. nightly as needed (11) Afib: Continue Coumadin (12) DVT prophylaxis: SCDs coumadin as above (13) Weakness: PT/OT eval and treat. Subjective Patient seen and examined at the bedside. Slowly improving .Continue to have crackles in the left lower lobe but somewhat better today since patient had Lasix yesterday and her diuresis was brisk. Her intake is good. Patient cli nically shows improvements but not ready yet to be discharged to SNF. Patient denies fever chills, chest pain hemoptysis hematuria dysuria abdominal pain frequency urgency. Review of Systems Review of Systems: All systems reviewed & are unremarkable except as noted in HPI & below Physical Exam Constitutional: WD/WN, vitals as above well developed Eyes: PERRL, conjunctivae normal, anicteric sclerae ENMT: external ear and nose normal, oropharynx normal Neck: trachea midline, no thyromegaly Respiratory: Auscultation: + crackles and + wheezes Cardiovascular: RRR, no murmur, no edema Gastrointestinal (Abdomen): normal bowel sounds, soft, nontender, no hepatosplenomegaly Musculoskeletal: no cyanosis or clubbing, extremities motor strength 5/5 Skin: no rashes, warm and dry Neurologic: patellar DTR's 2+ bilat, sensation intact Psychiatric: A+Ox3, euthymic affect Lymphatic: no cervical or axillary lymphadenopathy Results & Data Vital Signs (Past 12 Hours) Vital Signs Temp Pulse Pulse Resp BP Pulse Ox 03/27/19 16:24 68 03/27/19 15:53 36.8 C 62 18 103/68 93 03/27/19 08:00 36.6 C 59 L 18 102/60 94 03/27/19 04:29 36.9 C 60 22 110/72 99 PG Care Time/CCT Total # of Minutes Spent Total Time Spent with Patient: Total time spent is greater than 50% in coordination of care (as documented) at patient's floor/unit and/or counseling patient:
[2019-03-27] MEDS: WARFARIN SOD 5 MG TAB PO SCH (17:27)
[2019-03-27] MEDS: SIMVASTATIN 40 MG TAB PO SCH (20:50)
[2019-03-28 07:24] LABS: Basophils # (auto) 0.04 K/uL (0-0.2); Basophils % (auto) 0.5 %; Eosinophils # (auto) 0.21 K/uL (0-0.5); Eosinophils % (auto) 2.5 %; Hematocrit (blood only) 41.1 % (37-47); Hemoglobin 12.7 g/dL (12.0-16.0); Immature Granulocytes # (auto) 0.02 K/uL (0.00-0.02); Immature Granulocytes % (auto) 0.2 %; Lymphocytes # (auto) 1.51 K/uL (1.2-3.4); Lymphocytes % (auto) 18.1 %; Mean Corpuscular Hgb Conc 30.9 g/dL (32-36); Mean Corpuscular Volume 96.9 fL (80-100); Mean Platelet Volume 11.2 fL (7.4-10.4); Monocytes # (auto) 0.86 K/uL (0.11-0.59); Monocytes % (auto) 10.3 %; Neutrophils # (auto) 5.69 K/uL (1.4-6.5); Neutrophils % (auto) 68.4 %; Platelet Count 300 K/uL (130-400); RDW Coefficient of Variation 15.1 % (11.5-14.5); RDW Standard Deviation 52.9 fL (36.4-46.3); Red Blood Count 4.24 M/uL (4.2-5.4); White Blood Count 8.33 K/uL (4.8-10.8)
[2019-03-28 07:33] LABS: INR 3.3 (0.9-1.1); Prothrombin Time 30.8 Seconds (9.0-12.0)
[2019-03-28 07:55] LABS: BUN Creatinine Ratio 26.1 (10-20); Creatinine Clr Calc Pharmacy 49.8 ml/min; Est GFR (African American) 51.8; Est GFR (Non-African American) 44.7
[2019-03-28 07:59] LABS: Albumin Globulin Ratio 0.9 (0.9-2); Bilirubin,Total 0.4 mg/dl (0.2-1); Globulin 3.4 gm/dl (2.5-4.0); Total Protein 6.4 gm/dl (6.4-8.2)
[2019-03-28] MEDS ORDERED: FUROSEMIDE 20 MG in SYRINGE 0 ML IV SCH (09:00)
[2019-03-28] MEDS: INSULIN ASPART 100 UNITS/ML 3 ML PEN SC SCH ×4 (10:13→20:55)
[2019-03-28] MEDS: FERROUS SULFATE 325 MG TAB PO SCH ×2 (10:14→17:35)
[2019-03-28] MEDS: ESCITALOPRAM OXALATE 10 MG TAB PO SCH (10:15)
[2019-03-28] MEDS: CALCIUM 600MG + VIT D 400 IU TAB PO SCH (10:15)
[2019-03-28] MEDS: TIOTROPIUM BROMIDE 5 PUFF/90 MCG INH INH SCH (10:15)
[2019-03-28] MEDS: ACETAMINOPHEN 325 MG TAB PO SCH ×3 (10:16→21:02)
[2019-03-28] MEDS: FLECAINIDE ACETATE 100 MG TABLET PO SCH ×2 (10:16→21:04)
[2019-03-28] MEDS: ASCORBIC ACID 500 MG TAB PO SCH ×2 (10:17→21:04)
[2019-03-28] MEDS: DICLOFENAC SOD 1% GEL 100 GM TUBE EXT SCH ×4 (10:17→20:59)
[2019-03-28] MEDS: AZITHROMYCIN 250 MG TAB PO SCH (10:18)
[2019-03-28] MEDS: DOCUSATE SODIUM 100 MG CAP PO SCH (11:35)
[2019-03-28] MEDS: WARFARIN SOD 5 MG TAB PO SCH (15:35)
--- NOTE | 2019-03-28 16:27 | Hospitalist Progress Note ---
Date of Service March 28, 2019 Assessment & Plan (1) Hypoxemia: Pneumonia superimposed on COPDshowing slow but now steady improvement. Continue antibiotics and supportive caresee below otherwise. Community-acquired pneumoniacontinue antibiotics ceftriaxone and azithromycin and supportive care. Requires now 3 L of oxygen to keep oxygenation above 92%. Patient was not on oxygen prior to this admission. We will try to wean her off and before discharge to [facility] facility. Started Mucinex 1200 mg twice daily and hypertonic saline for better expectoration. Continue duo nebs every 4 hours as needed for shortness of breath and cough. (2) ARF (acute renal failure): Appears to show approximately baseline stage III CKD. Avoid nephrotoxic agents including pantoprazole and Lasix. Stop both (3) Toe pain: Has a history of gout, flareup improved. To stop colchicine now since patient is doing better. (4) Supratherapeutic INR: INR 2.7. Patient is therapeutic now. Continue 5 mg of Coumadin daily. Continue monitoring INR. (5) Type 2 diabetes mellitus: Sugars overall adequate control, continue to titrate current management (6) COPD (chronic obstructive pulmonary disease): Fortunately in spite of pneumonia her lungs are quiet but not wheezing. Continue to hold off on steroids. See above otherwise (7) Swelling of both lower extremities: BNP improved to 1400 from 1943. Patient has component of congestive heart failure. She improved with furosemide 20 mg twice daily. TTE findings: Left ventricular systolic function is normal. No regional wall motion abnormality noted. There is mild concentric left ventricular hypertrophy. Ejection fraction 55 to 60%. There is mild tricuspid regurgitation. Strict in and out Daily weight Restrict fluids p.o. to 1200 mils. EKG significant for nonspecific ST changes in V3 V4 V5 and V6. There are also nonspecific T wave abnormalities and QT interval is shortened. Started furosemide 20 mg IV twice daily. (8) Hyperlipidemia: Continue simvastatin 40 mg p.o. nightly (9) HTN (hypertension): Continue aspirin 81 mg p.o. daily, like I need 100 mg p.o. twice daily, triamterene hydrochlorothiazide 25 mg daily discontinued since patient is on Lasix now. (10) Depression: Continue escitalopram 10 mg p.o. every morning, and diazepam 2 mg tablet p.o. nightly as needed (11) Afib: Continue Coumadin (12) DVT prophylaxis: SCDs coumadin as above (13) Weakness: PT/OT eval and treat. Subjective Patient seen and examined at the bedside. Slowly improving .Continue to have crackles in the left lower lobe but somewhat better today. Her intake is good. Patient clinically shows improvements but not ready yet to be discharged to SNF. Patient denies fever chills, chest pain hemoptysis hematuria dysuria abdominal pain frequency urgency. Review of Systems Review of Systems: All systems reviewed & are unremarkable except as noted in HPI & below Physical Exam Constitutional: WD/WN, vitals as above well developed Eyes: PERRL, conjunctivae normal, anicteric sclerae ENMT: external ear and nose normal, oropharynx normal Neck: trachea midline, no thyromegaly Respiratory: Auscultation: + crackles and + wheezes Cardiovascular: RRR, no murmur, no edema Gastrointestinal (Abdomen): normal bowel sounds, soft, nontender, no hepatosplenomegaly Musculoskeletal: no cyanosis or clubbing, extremities motor strength 5/5 Skin: no rashes, warm and dry Neurologic: patellar DTR's 2+ bilat, sensation intact Psychiatric: A+Ox3, euthymic affect Lymphatic: no cervical or axillary lymphadenopathy Results & Data Vital Signs (Past 12 Hours) Vital Signs Temp Pulse Resp BP Pulse Ox 03/28/19 15:46 36.8 C 62 20 97/65 L 92 03/28/19 11:57 36.4 C L 83 16 117/70 90 03/28/19 07:33 36.4 C L 71 16 116/63 90 PG Care Time/CCT Total # of Minutes Spent Total Time Spent with Patient: Total time spent is greater than 50% in coordination of care (as documented) at patient's floor/unit and/or counseling patient:
[2019-03-28] MEDS: SODIUM CHLOR 7% 4 ML NEB NEB SCH (19:15)
[2019-03-28] MEDS: diazePAM 2 MG TABLET PO PRN (21:02)
[2019-03-28] MEDS: SIMVASTATIN 40 MG TAB PO SCH (21:04)
[2019-03-28] MEDS: guaiFENesin 600 MG TABCR PO SCH (22:04)
[2019-03-29 06:42] LABS: Basophils # (auto) 0.05 K/uL (0-0.2); Basophils % (auto) 0.6 %; Eosinophils # (auto) 0.25 K/uL (0-0.5); Eosinophils % (auto) 2.8 %; Hematocrit (blood only) 41.3 % (37-47); Hemoglobin 13.5 g/dL (12.0-16.0); Immature Granulocytes # (auto) 0.02 K/uL (0.00-0.02); Immature Granulocytes % (auto) 0.2 %; Lymphocytes # (auto) 1.83 K/uL (1.2-3.4); Lymphocytes % (auto) 20.3 %; Mean Corpuscular Hemoglobin 31.4 pg (25-34); Mean Corpuscular Hgb Conc 32.7 g/dL (32-36); Mean Platelet Volume 10.9 fL (7.4-10.4); Monocytes % (auto) 8.9 %; Neutrophils # (auto) 6.05 K/uL (1.4-6.5); Neutrophils % (auto) 67.2 %; Platelet Count 325 K/uL (130-400); RDW Coefficient of Variation 14.9 % (11.5-14.5); RDW Standard Deviation 52.1 fL (36.4-46.3)
[2019-03-29] MEDS: SODIUM CHLOR 7% 4 ML NEB NEB SCH ×2 (06:57→19:03)
[2019-03-29 07:09] LABS: INR 4.1 (0.9-1.1)
[2019-03-29 07:19] LABS: Albumin Level 3.3 gm/dl (3.4-5.0); BUN Creatinine Ratio 22.1 (10-20); Calcium 9.9 mg/dl (8.5-10.1); Creatinine Clr Calc Pharmacy 48.5 ml/min; Est GFR (African American) 50.3; Est GFR (Non-African American) 43.4; Potassium 3.7 mmol/L (3.5-5.1)
[2019-03-29 07:22] LABS: Albumin Globulin Ratio 0.9 (0.9-2); Bilirubin,Total 0.4 mg/dl (0.2-1); Globulin 3.5 gm/dl (2.5-4.0); Total Protein 6.8 gm/dl (6.4-8.2)
[2019-03-29] MEDS: CALCIUM 600MG + VIT D 400 IU TAB PO SCH (09:05)
[2019-03-29] MEDS: guaiFENesin 600 MG TABCR PO SCH ×2 (09:05→20:27)
[2019-03-29] MEDS: ESCITALOPRAM OXALATE 10 MG TAB PO SCH (09:05)
[2019-03-29] MEDS: INSULIN ASPART 100 UNITS/ML 3 ML PEN SC SCH ×5 (09:06→20:43)
[2019-03-29] MEDS: FERROUS SULFATE 325 MG TAB PO SCH ×2 (09:06→17:33)
[2019-03-29] MEDS: ASCORBIC ACID 500 MG TAB PO SCH ×2 (09:06→20:30)
[2019-03-29] MEDS: TIOTROPIUM BROMIDE 5 PUFF/90 MCG INH INH SCH (09:07)
[2019-03-29] MEDS: ACETAMINOPHEN 325 MG TAB PO SCH ×3 (09:12→20:30)
[2019-03-29] MEDS: DOCUSATE SODIUM 100 MG CAP PO SCH (09:12)
[2019-03-29] MEDS: DICLOFENAC SOD 1% GEL 100 GM TUBE EXT SCH ×4 (09:12→20:30)
[2019-03-29] MEDS: FLECAINIDE ACETATE 100 MG TABLET PO SCH ×2 (09:37→20:28)
--- NOTE | 2019-03-29 17:03 | Hospitalist Progress Note ---
Date of Service March 29, 2019 Assessment & Plan (1) Hypoxemia: Pneumonia superimposed on COPDshowing slow but now steady improvement. Continue antibiotics and supportive caresee below otherwise. Community-acquired pneumoniacontinue antibiotics ceftriaxone and azithromycin and supportive care. Requires now 2 L of oxygen to keep oxygenation above 92%. Patient was not on oxygen prior to this admission. We will try to wean her off and before discharge to [facility]pc facility. Started Mucinex 1200 mg twice daily and hypertonic saline for better expectoration. Continue duo nebs every 4 hours as needed for shortness of breath and cough. (2) ARF (acute renal failure): Appears to show approximately baseline stage III CKD. Avoid nephrotoxic agents including pantoprazole and Lasix. Stop both (3) Toe pain: Has a history of gout, flareup improved. To stop colchicine now since patient is doing better. (4) Supratherapeutic INR: INR 2.7. Patient is therapeutic now. Continue 5 mg of Coumadin daily. Continue monitoring INR. (5) Type 2 diabetes mellitus: Sugars overall adequate control, continue to titrate current management (6) COPD (chronic obstructive pulmonary disease): Fortunately in spite of pneumonia her lungs are quiet but not wheezing. Continue to hold off on steroids. See above otherwise (7) Swelling of both lower extremities: BNP improved to 1400 from 1943. Patient has component of congestive heart failure. She improved with furosemide 20 mg twice daily. TTE findings: Left ventricular systolic function is normal. No regional wall motion abnormality noted. There is mild concentric left ventricular hypertrophy. Ejection fraction 55 to 60%. There is mild tricuspid regurgitation. Strict in and out Daily weight Restrict fluids p.o. to 1200 mils. EKG significant for nonspecific ST changes in V3 V4 V5 and V6. There are also nonspecific T wave abnormalities and QT interval is shortened. Started furosemide 20 mg IV twice daily. (8) Hyperlipidemia: Continue simvastatin 40 mg p.o. nightly (9) HTN (hypertension): Continue aspirin 81 mg p.o. daily, like I need 100 mg p.o. twice daily, triamterene hydrochlorothiazide 25 mg daily discontinued since patient is on Lasix now. (10) Depression: Continue escitalopram 10 mg p.o. every morning, and diazepam 2 mg tablet p.o. nightly as needed (11) Afib: Continue Coumadin (12) DVT prophylaxis: SCDs coumadin as above (13) Weakness: PT/OT eval and treat. Subjective Patient seen and examined at the bedside. Slowly improving .Continue to have crackles in the left lower lobe but steady improvement. Her intake is good. Patient clinically shows improvements but not ready yet to be discharged to SNF. Patient denies fever chills, chest pain hemoptysis hematuria dysuria abdominal pain frequency urgency. Review of Systems Review of Systems: All systems reviewed & are unremarkable except as noted in HPI & below Physical Exam Constitutional: WD/WN, vitals as above well developed Eyes: PERRL, conjunctivae normal, anicteric sclerae ENMT: external ear and nose normal, oropharynx normal Neck: trachea midline, no thyromegaly Respiratory: Auscultation: + crackles and + wheezes Cardiovascular: RRR, no murmur, no edema Gastrointestinal (Abdomen): normal bowel sounds, soft, nontender, no hepatosplenomegaly Musculoskeletal: no cyanosis or clubbing, extremities motor strength 5/5 Skin: no rashes, warm and dry Neurologic: patellar DTR's 2+ bilat, sensation intact Psychiatric: A+Ox3, euthymic affect Lymphatic: no cervical or axillary lymphadenopathy Results & Data Vital Signs (Past 12 Hours) Vital Signs Temp Pulse Pulse Resp BP BP Pulse Ox 03/29/19 15:23 36.7 C 60 18 115/60 90 03/29/19 15:04 84 L 03/29/19 14:55 62 03/29/19 13:58 120/76 03/29/19 11:29 36.6 C 63 18 84/57 L 97 03/29/19 07:44 62 18 94 03/29/19 07:39 91 H 03/29/19 07:38 36.5 C 56 L 20 99/61 L 92 PG Care Time/CCT Total # of Minutes Spent Total Time Spent with Patient: Total time spent is greater than 50% in coordination of care (as documented) at patient's floor/unit and/or counseling patient:
[2019-03-29 17:59] LABS: INR 4.9 (0.9-1.1)
[2019-03-29] MEDS: ALBUT/IPRATROP 3MG/0.5MG NEB 3 ML VIAL NEB PRN (19:03)
[2019-03-29] MEDS: SIMVASTATIN 40 MG TAB PO SCH (20:31)
[2019-03-29] MEDS: ACETAMINOPHEN 325 MG TAB PO PRN (20:35)
[2019-03-29] MEDS: ALPRAZolam 0.25 MG TABLET PO PRN (22:00)
[2019-03-30 06:17] LABS: Basophils # (auto) 0.03 K/uL (0-0.2); Basophils % (auto) 0.4 %; Eosinophils # (auto) 0.21 K/uL (0-0.5); Eosinophils % (auto) 2.7 %; Hematocrit (blood only) 40.4 % (37-47); Hemoglobin 12.6 g/dL (12.0-16.0); Immature Granulocytes # (auto) 0.01 K/uL (0.00-0.02); Immature Granulocytes % (auto) 0.1 %; Lymphocytes # (auto) 1.59 K/uL (1.2-3.4); Lymphocytes % (auto) 20.2 %; Mean Corpuscular Hemoglobin 30.6 pg (25-34); Mean Corpuscular Hgb Conc 31.2 g/dL (32-36); Mean Corpuscular Volume 98.1 fL (80-100); Mean Platelet Volume 11.5 fL (7.4-10.4); Monocytes # (auto) 1.03 K/uL (0.11-0.59); Monocytes % (auto) 13.1 %; Neutrophils # (auto) 5.01 K/uL (1.4-6.5); Neutrophils % (auto) 63.5 %; Platelet Count 301 K/uL (130-400); RDW Coefficient of Variation 15.1 % (11.5-14.5); RDW Standard Deviation 54.3 fL (36.4-46.3); Red Blood Count 4.12 M/uL (4.2-5.4); White Blood Count 7.88 K/uL (4.8-10.8)
[2019-03-30 06:45] LABS: Prothrombin Time 38.6 Seconds (9.0-12.0)
[2019-03-30 06:54] LABS: Albumin Level 3.2 gm/dl (3.4-5.0); BUN Creatinine Ratio 31.3 (10-20); Calcium 9.9 mg/dl (8.5-10.1); Creatinine Clr Calc Pharmacy 61.3 ml/min; Est GFR (African American) 66.6; Est GFR (Non-African American) 57.4
[2019-03-30 06:57] LABS: Albumin Globulin Ratio 0.9 (0.9-2); Bilirubin,Total 0.3 mg/dl (0.2-1); Globulin 3.4 gm/dl (2.5-4.0); Total Protein 6.6 gm/dl (6.4-8.2)
[2019-03-30] MEDS: ALBUT/IPRATROP 3MG/0.5MG NEB 3 ML VIAL NEB PRN ×2 (06:57→18:57)
[2019-03-30] MEDS: SODIUM CHLOR 7% 4 ML NEB NEB SCH ×2 (06:57→18:54)
[2019-03-30 07:01] LABS: INR 4.2 (0.9-1.1)
[2019-03-30] MEDS: ASCORBIC ACID 500 MG TAB PO SCH ×2 (07:59→20:38)
[2019-03-30] MEDS: CALCIUM 600MG + VIT D 400 IU TAB PO SCH (08:01)
[2019-03-30] MEDS: guaiFENesin 600 MG TABCR PO SCH ×2 (08:01→20:37)
[2019-03-30] MEDS: ESCITALOPRAM OXALATE 10 MG TAB PO SCH (08:01)
[2019-03-30] MEDS: FLECAINIDE ACETATE 100 MG TABLET PO SCH ×2 (08:01→20:38)
[2019-03-30] MEDS: ACETAMINOPHEN 325 MG TAB PO SCH ×3 (08:03→20:41)
[2019-03-30] MEDS: DOCUSATE SODIUM 100 MG CAP PO SCH (08:03)
[2019-03-30] MEDS: FERROUS SULFATE 325 MG TAB PO SCH ×2 (08:05→17:31)
[2019-03-30] MEDS: DICLOFENAC SOD 1% GEL 100 GM TUBE EXT SCH ×4 (08:06→20:41)
[2019-03-30] MEDS: TIOTROPIUM BROMIDE 5 PUFF/90 MCG INH INH SCH (08:24)
[2019-03-30] MEDS: INSULIN ASPART 100 UNITS/ML 3 ML PEN SC SCH ×4 (09:19→20:56)
--- NOTE | 2019-03-30 10:24 | Hospitalist Progress Note ---
Date of Service March 30, 2019 Assessment & Plan (1) Hypoxemia: Patient with likely community acquired pneumonia, status post antibiotic treatment with Rocephin and Zithromax. Patient appears to be stable from this perspective and has normal WBC and has been afebrile. Will likely require supplemental oxygen in the short-term while she recovers. (2) ARF (acute renal failure): Patient's creatinine seems to be improved since yesterday. I do see Lasix and pantoprazole were both stopped which may have contributed to this. Can recheck today. (3) Toe pain: Has a history of gout, flareup improved. To stop colchicine now since patient is doing better. (4) Supratherapeutic INR: INR 4.2 today. Coumadin was held yesterday. I will hold again tonight and recheck INR. (5) Type 2 diabetes mellitus: Sugars overall adequate control, continue to titrate current management (6) COPD (chronic obstructive pulmonary disease): Fortunately in spite of pneumonia her lungs are quiet but not wheezing. Continue to hold off on steroids. See above otherwise (7) Swelling of both lower extremities: Patient remains on fluid restriction. Lasix stopped for elevated creatinine. Continue to monitor on this. Patient is on flecainide. (8) Hyperlipidemia: Continue simvastatin 40 mg p.o. nightly (9) HTN (hypertension): Continue aspirin 81 mg p.o. daily, patient is off antihypertensives but blood pressure remains low normal today. Continue to monitor. (10) Depression: Continue escitalopram 10 mg p.o. every morning, and diazepam 2 mg tablet p.o. nightly as needed (11) Afib: Off Coumadin as noted above (12) DVT prophylaxis: SCDs coumadin as above (13) Weakness: PT/OT eval and treat. Eventual plan for fpc placement in the next 24 hours the patient continues to improve. Subjective Patient seen and examined at the bedside. Asleep but easily arousable. Patient tells me she is feeling well with no complaints. She still requires 2 L nasal cannula for comfort. She denies any cough or significant shortness of breath with this Review of Systems Review of Systems: All systems reviewed & are unremarkable except as noted in HPI & below Physical Exam Physical Exam: GENERAL: Non-toxic in appearance. INTEGUMENTARY: Warm, dry, and [place]. HEAD: Normocephalic. EYES: without scleral icterus or trauma. ENT/OROPHARYNX: clear and moist. LYMPHADENOPATHY/NECK: Is supple without lymphadenopathy or meningismus. RESPIRATORY: Very diminished in all wright without obvious wheeze. CARDIOVASCULAR: Regular rate and rhythm. GI/ABDOMEN: Soft and nontender. No organomegaly or pulsatile mass. No rebound or guarding. Normal bowel sounds. EXTREMITIES: Warm and well perfused. BACK: No CVA tenderness. NEUROLOGICAL: Intact without focal deficits. PSYCHIATRIC: normal affect. MUSCULOSKELETAL: Normally developed with good muscle tone. Results & Data Vital Signs (Past 12 Hours) Vital Signs Temp Pulse Pulse Resp BP BP Pulse Ox 03/30/19 08:40 36.5 C 62 19 112/67 91 03/30/19 08:15 61 03/30/19 06:57 68 16 98 03/30/19 04:00 36.5 C 65 20 105/61 92 03/30/19 00:37 95 H 03/29/19 23:01 37 C 66 16 95/55 L PG Care Time/CCT Total # of Minutes Spent Total Time Spent with Patient: Total time spent is greater than 50% in coordination of care (as documented) at patient's floor/unit and/or counseling patient:
[2019-03-30] MEDS: SIMVASTATIN 40 MG TAB PO SCH (20:38)
[2019-03-30] MEDS ORDERED: WARFARIN SOD 5 MG TAB PO SCH (21:00)
[2019-03-30] MEDS: diazePAM 2 MG TABLET PO PRN (21:36)
[2019-03-31 06:20] LABS: Hematocrit (blood only) 38.9 % (37-47); Hemoglobin 12.2 g/dL (12.0-16.0); Mean Corpuscular Hemoglobin 30.9 pg (25-34); Mean Corpuscular Hgb Conc 31.4 g/dL (32-36); Mean Corpuscular Volume 98.5 fL (80-100); Mean Platelet Volume 11.5 fL (7.4-10.4); Platelet Count 298 K/uL (130-400); RDW Coefficient of Variation 15.2 % (11.5-14.5); RDW Standard Deviation 54.5 fL (36.4-46.3); Red Blood Count 3.95 M/uL (4.2-5.4)
[2019-03-31 06:25] LABS: INR 2.6 (0.9-1.1); Prothrombin Time 25.1 Seconds (9.0-12.0)
[2019-03-31 06:53] LABS: BUN Creatinine Ratio 30.6 (10-20); Calcium 9.8 mg/dl (8.5-10.1); Creatinine Clr Calc Pharmacy 69.6 ml/min; Est GFR (African American) 77.7; Potassium 4.1 mmol/L (3.5-5.1)
[2019-03-31] MEDS: SODIUM CHLOR 7% 4 ML NEB NEB SCH ×2 (07:05→19:05)
[2019-03-31] MEDS: FLECAINIDE ACETATE 100 MG TABLET PO SCH ×2 (07:34→20:53)
[2019-03-31] MEDS: ASCORBIC ACID 500 MG TAB PO SCH ×2 (07:34→20:54)
[2019-03-31] MEDS: guaiFENesin 600 MG TABCR PO SCH ×2 (07:34→20:54)
[2019-03-31] MEDS: ESCITALOPRAM OXALATE 10 MG TAB PO SCH (07:34)
[2019-03-31] MEDS: FERROUS SULFATE 325 MG TAB PO SCH ×2 (07:34→16:15)
[2019-03-31] MEDS: CALCIUM 600MG + VIT D 400 IU TAB PO SCH (07:34)
[2019-03-31] MEDS: DICLOFENAC SOD 1% GEL 100 GM TUBE EXT SCH ×4 (07:35→20:54)
[2019-03-31] MEDS: TIOTROPIUM BROMIDE 5 PUFF/90 MCG INH INH SCH (07:35)
[2019-03-31] MEDS: DOCUSATE SODIUM 100 MG CAP PO SCH (07:39)
[2019-03-31] MEDS: ACETAMINOPHEN 325 MG TAB PO SCH ×3 (07:39→20:53)
[2019-03-31] MEDS: INSULIN ASPART 100 UNITS/ML 3 ML PEN SC SCH ×4 (08:01→21:07)
[2019-03-31] MEDS ORDERED: NON-FORMULARY MEDICATION (Glipizide 5 MG) PO SCH (09:00)
--- NOTE | 2019-03-31 09:49 | Discharge Summary ---
Date of Service March 31, 2019 Admission HPI Per Admitting Provider 68 y/o F c/o SOB. Pt states she started having SOB about 2 weeks ago. She had a cough and eventually started bringing up sputum. Her SOB has been worsening and the last few days she has noticed blood in her sputum. She started to have some PORTER as well. Today and yesterday she was very weak. She has not been able to eat much. She states that today she tried to take a shower and could not stand long enough to complete this task. She sat on the side of the bath to rest and then could not get herself up due to being so weak. She gradually eased her way onto the floor due to weakness. Pt denies fever, chest pain, abd pain, n/v/c/d, LE pain or current swelling. Pt does get occasional LE swelling, but her PCP has put on her on QOD triamterine/HCTZ for this and it has been sufficient. Pt states she has had similar sx with PNA in the past x2, the last was about 5-6 yrs ago. Pt moved from that home and had been well since that time, so she thought maybe it was related to mold or some other issue with her home. Pt does not wear O2 at home. She does have COPD that she takes spiriva scheduled. She does not have PRN nebs/inhalers at home. She states that PCP has mentioned home O2 to her in the past, but she did not qualify for this. Pt received abx and O2 in the ED and states she does feel improved in terms of her breathing. She has not been OOB to test her weakness. Pt was reported at 78% on RA on arrival to the ED. Pt denies any bleeding. Pt states she gets lightheaded most days before lunch. She takes her glipizide as an AM med and has breakfast but about 3 hours later is lightheaded. PCP has decreased the dose and this has helped, but it still happens regularly. "I hate that medication. You can have it." This is the only DM medication she has ever used. Admission Exam Per Admitting Provider Constitutional: WD/WN, vitals as above Eyes: normal visual wright by confrontation and + anicteric sclerae Neck: normal visual inspection and trachea midline Respiratory: normal respiratory effort; no respiratory distress Auscultation: + diminished lung sounds and + crackles; no wheezes Cardiovascular: Rate/Rhythm: regular rate and regular rhythm Gastrointestinal (Abdomen): Inspection/Auscultation: abdomen not distended Percussion/Palpation: abdomen soft; abdomen nontender Musculoskeletal: Head/Neck/Chest: normocephalic and head atraumatic negative for edema, peripheral pulses intact Skin: no rashes, warm and dry Neurologic: awake; not confused Speech / Cognition: normal speech Psychiatric: A+Ox3, euthymic affect Principal Diagnosis 1. Community acquired pneumonia 2. Chronic COPD with exacerbation 3. Possible gout flareup, resolved 4. Hypertension 5. Acute renal failure, resolved 6. Chronic atrial fibrillation on Coumadin Discharge Exam GENERAL: Non-toxic in appearance. INTEGUMENTARY: Warm, dry, and [place]. HEAD: Normocephalic. EYES: without scleral icterus or trauma. ENT/OROPHARYNX: clear and moist. LYMPHADENOPATHY/NECK: Is supple without lymphadenopathy or meningismus. RESPIRATORY: Very diminished with poor air movement in all wright. No overt wheeze. Minimal crackle at the bases. CARDIOVASCULAR: Regular rate and rhythm. GI/ABDOMEN: Soft and nontender. No organomegaly or pulsatile mass. No rebound or guarding. Normal bowel sounds. EXTREMITIES: Warm and well perfused. BACK: No CVA tenderness. NEUROLOGICAL: Intact without focal deficits. PSYCHIATRIC: normal affect. MUSCULOSKELETAL: Normally developed with good muscle tone. Discharge Data Allergies Allergy/AdvReac Type Severity Reaction Status Date / Time ibuprofen Allergy Intermediate SHAKINESS Verified 03/19/19 17:44 iodine Allergy Intermediate RASH Verified 03/19/19 17:44 latex Allergy Unknown unknown Verified 03/19/19 17:44 metformin AdvReac Intermediate DIZZINESS Verified 03/19/19 17:44 amoxicillin AdvReac Unknown IRRITABILIT Verified 03/19/19 17:44 Y Consultations 03/19/19 17:50 ED Decision to Admit Stat 03/19/19 20:20 Consult Case Management - Discharge Planning Routine 03/22/19 18:53 Consult Case Management - Discharge Planning Routine Hospital Course (1) Hypoxemia: Patient with likely community acquired pneumonia, status post antibiotic treatment with Rocephin and Zithromax. Patient appears to be stable from this perspective and has normal WBC and has been afebrile. Will likely require supplemental oxygen in the short-term while she recovers. (2) ARF (acute renal failure): Patient's creatinine seems to be improved since yesterday. Pantoprazole and Lasix were held with the patient remain as an inpatient. Her creatinine at discharge was 0.88 which I assume is her baseline. These medications should be restarted and the patient should be reevaluated for her renal function. (3) Toe pain: Has a history of gout, flareup improved. To stop colchicine now since patient is doing better. (4) Supratherapeutic INR: Patient's INR was elevated and warfarin was held. On day of discharge, INR is now 2.6. She will need another INR checked within 48 hours after discharge and dose adjusted further as needed. (5) Type 2 diabetes mellitus: Sugars overall adequate control, continue to titrate current management (6) COPD (chronic obstructive pulmonary disease): Fortunately in spite of pneumonia her lungs are quiet but not wheezing. Continue to hold off on steroids. See above otherwise (7) Swelling of both lower extremities: Patient remains on fluid restriction. Lasix stopped for elevated creatinine. Continue to monitor on this. Patient is on flecainide. (8) Hyperlipidemia: Continue simvastatin 40 mg p.o. nightly (9) HTN (hypertension): Continue aspirin 81 mg p.o. daily, patient is off antihypertensives but blood pressure remains low normal today. Continue to monitor. (10) Depression: Continue escitalopram 10 mg p.o. every morning, and diazepam 2 mg tablet p.o. nightly as needed (11) Afib: Off Coumadin as noted above (12) DVT prophylaxis: SCDs coumadin as above (13) Weakness: Patient will [facility]/OT prior to returning to her previous setting. Total Time Total Time Spent Total Time Spent (In Minutes): Discharge time in excess of 30 minutes. Discharge Plan Discharge Items Patient Disposition: Transfer Nursing Home Fac Reason For Visit: PNA Discharge Diagnosis: 1. Community acquired pneumonia 2. Chronic COPD with exacerbation 3. Possible gout flareup, resolved 4. Hypertension 5. Acute renal failure, resolved 6. Chronic atrial fibrillation on Coumadin Condition on Discharge: Good Activity: Per Instructions section Non-emergency contact: Primary Care Provider Call non-emergency contact if: your symptoms worsen and you have a fever Follow-up/Referrals: Alfredo Rizvi MD [Primary Care Provider] - Diet: Carb Consistent or DM2 and Heart Healthy Fluids: 1200ml (5 cups) Addtl Attending Provider Instructions: Patient will require PT/INR in the next 2-3days and regularly after. Pending Studies at Discharge: No Stand-Alone Forms: My [facility] Skilled Items Patient informed of condition?: Yes DNR: No Discharge Level of Care: Skilled Communicable Disease: No Discharge Prognosis: Stable Lines: None Urinary Catheter: No Medications and DC Order Prescriptions: New warfarin [Coumadin] 5 mg Tablet 5 mg PO DAILY@1600 30 Days Qty: 30 RF: 0 alprazolam 0.25 mg Tablet 0.25 mg PO TID PRN (Reason: anxiety) Qty: 7 RF: 0 diazepam 2 mg Tablet 2 mg PO HS PRN (Reason: sleep) Qty: 7 RF: 0 tramadol 50 mg Tablet 50 mg PO BID PRN (Reason: pain) 3 Days Qty: 7 RF: 0 Continued alprazolam 0.25 mg tablet 0.25 mg PO TID PRN (Reason: anxiety) Qty: 90 RF: 0 escitalopram oxalate 10 mg tablet 10 mg PO QAM Qty: 90 RF: 0 glipizide 5 mg tablet extended release 24hr 5 mg PO QAM Qty: 90 RF: 0 pantoprazole 40 mg tablet,delayed release (DR/EC) 40 mg PO QAM Qty: 90 RF: 0 simvastatin 40 mg tablet 40 mg PO HS Qty: 90 RF: 0 tramadol 50 mg tablet 50 mg PO BID PRN (Reason: pain) Qty: 60 RF: 0 triamterene-hydrochlorothiazid 37.5-25 mg tablet 1 tab PO Q OTHER DAY Qty: 45 RF: 0 ferrous sulfate 325 mg (65 mg iron) tablet 325 mg PO BIDM Qty: 180 RF: 0 flecainide 100 mg tablet 100 mg PO BID Qty: 180 RF: 0 warfarin 5 mg tablet 5 mg PO HS Qty: 100 RF: 0 tiotropium bromide 2.5 mcg/actuation mist 2 puffs inhalation QAM Qty: 3 RF: 0 diazepam 2 mg tablet 2 mg PO HS PRN (Reason: Anxiety) Qty: 30 RF: 0 aspirin 81 mg Tablet,Delayed Release (Dr/Ec) 81 mg PO QAM RF: 0 cyanocobalamin (vitamin B-12) [Vitamin B-12] 1,000 mcg Tablet 1,000 mcg PO MONTHLY RF: 0 ascorbic acid (vitamin C) [Vitamin C] 1,000 mg Tablet 1 g PO BID RF: 0 calcium carbonate-vitamin D3 [Calcium 500 With D] 500 mg(1,250mg) -400 unit Tablet 1 tab PO QAM RF: 0 Discharge Orders: Discharge Order (Routine); Ordered 03/31/19 Ordered By: Ant Castro Admission Data Admit Date/Time: 03/19/19 19:22 Attending Provider: Ant Castro Admit Provider: Marya Bowen Primary Care Provider: Alfredo Rizvi Other Providers: Frederic Joyner ; Vanessa Romero at [place] ; Marya Bowen
[2019-03-31] MEDS: WARFARIN SOD 5 MG TAB PO SCH (16:15)
[2019-03-31] MEDS: SIMVASTATIN 40 MG TAB PO SCH (20:54)
[2019-03-31] MEDS: diazePAM 2 MG TABLET PO PRN (21:53)
[2019-04-01] MEDS: SODIUM CHLOR 7% 4 ML NEB NEB SCH (07:20)
[2019-04-01] MEDS: TIOTROPIUM BROMIDE 5 PUFF/90 MCG INH INH SCH (08:01)
[2019-04-01] MEDS: DICLOFENAC SOD 1% GEL 100 GM TUBE EXT SCH ×2 (08:01→14:03)
[2019-04-01] MEDS: CALCIUM 600MG + VIT D 400 IU TAB PO SCH (08:01)
[2019-04-01] MEDS: FERROUS SULFATE 325 MG TAB PO SCH (08:01)
[2019-04-01] MEDS: guaiFENesin 600 MG TABCR PO SCH (08:01)
[2019-04-01] MEDS: ESCITALOPRAM OXALATE 10 MG TAB PO SCH (08:01)
[2019-04-01] MEDS: FLECAINIDE ACETATE 100 MG TABLET PO SCH (08:01)
[2019-04-01] MEDS: ASCORBIC ACID 500 MG TAB PO SCH (08:01)
[2019-04-01] MEDS: ACETAMINOPHEN 325 MG TAB PO SCH (08:04)
[2019-04-01] MEDS: DOCUSATE SODIUM 100 MG CAP PO SCH (08:04)
[2019-04-01 08:07] LABS: Prothrombin Time 19.3 Seconds (9.0-12.0)
[2019-04-01 08:16] VITALS: TEMP 98.2
[2019-04-01] MEDS: INSULIN ASPART 100 UNITS/ML 3 ML PEN SC SCH ×2 (08:19→12:34)
[2019-04-01 09:23] VITALS: PULSE 62; O2SAT 93
[2019-04-01 11:48] VITALS: BP 153/81
[2019-04-13] MEDS ORDERED: CYANOCOBALAMIN 500 MCG TABLET (VITAMIN B-12) PO SCH (09:00)
== END 2019-04-01 14:06 | DRG 194 ==
LOC: ED 16:12 → 2W 19:22 → SUATTDRO 19:22 → 2W 19:59 → 2N 03-26 22:26